=== PATIENT | male | born 1945 | race Caucasian/White ===

== ENCOUNTER 2017-02-17 22:02 | Emergency (ER) | payer MEDICARE ==
[~2017-02-17] VITALS: Ht 162.6 cm; Wt 61.9 kg
[~2017-02-17 22:02] MED LIST: CLOP75TA19 PO; LEFL10TA PO; LEVO25TA PO; PANT40TA25 PO; PRED1TAB17 PO; [UNRECOGNIZED DRUG - CODE] PO
--- OUTSIDE RECORDS SUMMARY | 2017-02-17 22:05 | XMS REPORT | Referral Summary ---
Author Author [facility], [facility] Organization [facility] Address Unknown Phone Unavailable Care Team Providers Care Medical Practice Manager Name Role Phone Brittany Matias Primary Care Physician [phone] Encounter VC Date(s): 04/08/15 - 04/08/15 [facility] [address] [place] [id number] Discharge Diagnosis: Benign essential hypertension Discharge Diagnosis: Rheumatoid arthritis Discharge Diagnosis: Hypothyroidism Discharge Diagnosis: Peripheral vascular disease Discharge Diagnosis: Gastroesophageal reflux disease Discharge Disposition: 01-Home or Self Care Attending Physician: Sammy Matias MD Admitting Physician: Sammy Matias MD Vital Signs Most recent to 1 oldest [Reference Range]: Temperature Tympanic 36.3 degC [36.6-38.1 degC] *LOW* (04/08/15 1:54 PM) Peripheral Pulse 72 bpm Rate [60-100 bpm] (04/08/15 1:54 PM) Respiratory Rate 16 br/min [14-20 br/min] (04/08/15 1:54 PM) Blood Pressure 140/70 mmHg [90-140/60-90 mmHg] (04/08/15 1:54 PM) Problem List Condition Effective Dates Status Health Status Informant Benign essential Active hypertension (disorder)(Confirmed ) Carotid Resolved stenosis(Confirmed) Therapeutic drug Active monitoring(Confirmed ) Gastroesophageal Active reflux disease (disorder)(Confirmed ) GERD(Confirmed) Resolved Hypothyroidism(Confi Resolved rmed) Hypothyroidism Active (disorder)(Confirmed ) Osteoarthritis(Confi Resolved rmed) RA/NDB 10/12/08 Resolved Enrolled(Confirmed) Rheumatoid arthritis Active (disorder)(Confirmed ) Shingles(Confirmed) Resolved Wound to left great 10/03/10 Resolved toe(Confirmed) Allergies, Adverse Reactions, Alerts No Known Medication Allergies Medications Arava 20 mg oral tablet 20 mg 1 tabs, Oral, Daily, # 90 tabs, 1 Refill(s), Pharmacy: [facility], 1 tabs Oral Daily Start Date: 06/17/15 Status: Ordered levothyroxine 75 mcg (0.075 mg) oral tablet 75 mcg 1 tabs, Oral, Daily, # 90 tabs, 3 Refill(s), Pharmacy: [facility] # [id number], 1 tabs Oral Daily Start Date: 04/08/15 Status: Ordered lisinopril 20 mg oral tablet 20 mg 1 tabs, Oral, Daily, # 30 tabs, 5 Refill(s), Pharmacy: [facility] # [id number] Start Date: 07/14/15 Status: Ordered Plavix 75 mg oral tablet See Instructions, TAKE ONE TABLET BY MOUTH EVERY DAY, # 30 tabs, 2 Refill(s), eRx: [facility] #[id number], TAKE ONE TABLET BY MOUTH EVERY DAY Start Date: 07/15/15 Status: Ordered predniSONE 5 mg oral tablet 7.5 mg 1.5 tabs, Oral, Daily, # 135 tabs, 1 Refill(s), Pharmacy: [facility], 1.5 tabs Oral Daily Start Date: 06/17/15 Status: Ordered Protonix 40 mg oral delayed release tablet See Instructions, TAKE ONE TABLET BY MOUTH EVERY DAY, # 90 tabs, eRx: [facility] #[id number], TAKE ONE TABLET BY MOUTH EVERY DAY Start Date: 06/28/15 Status: Ordered sulfaSALAzine 500 mg oral tablet 1,500 mg 3 tabs, Oral, BID, # 540 tabs, 1 Refill(s), Pharmacy: [facility], 3 tabs Oral BID Start Date: 06/17/15 Status: Ordered Results No data available for this section Immunizations Vaccine Date Refusal Reason tetanus/diphth/pertuss (Tdap) adult/adol 06/26/14 influenza virus vaccine, live 06/24/13 pneumococcal 23-polyvalent vaccine 06/18/07 Procedures Procedure Date Related Diagnosis Body Site Rt above knee amputation1 09/29/10 Right Carotid Endarterectomy 07/12/07 Bilateral Bunionectomy 2003 1due to shingles Social History Social History Type Response Smoking Status Former smoker1 1PT STOPPED SMOKING IN 2011 Assessment and Plan Extracted from: Title: Ambulatory Patient Education Author: Sammy Matias MD Date: Family Medicine Rheumatoid Arthritis Rheumatoid arthritis is a long-term (chronic ) inflammatory disease that causes pain, swelling, and stiffness of the joints. It can affect the entire body, including the eyes and lungs. The effects of rheumatoid arthritis vary widely among those with the condition. CAUSES The cause of rheumatoid arthritis is not known. It tends to run in families and is more common in women. Certain cells of the body's natural defense system ( immune system ) do not work properly and begin to attack healthy joints. It primarily involves the connective tissue that lines the joints (synovial membrane ). This can cause damage to the joint. SYMPTOMS Pain, stiffness, swelling, and decreased motion of many joints, especially in the hands and feet. Stiffness that is worse in the morning. It may last 12 hours or longer. Numbness and tingling in the hands. Fatigue. Loss of appetite. Weight loss. Low-grade fever. Dry eyes and mouth. Firm lumps (rheumatoid nodules ) that grow beneath the skin in areas such as the elbows and hands. DIAGNOSIS Diagnosis is based on the symptoms described, an exam, and blood tests. Sometimes, X-rays are helpful. TREATMENT The goals of treatment are to relieve pain, reduce inflammation, and to slow down or stop joint damage and disability. Methods vary and may include: Maintaining a balance of rest, exercise, and proper nutrition. Medicines: Pain relievers (analgesics ). Corticosteroids and nonsteroidal anti-inflammatory drugs (NSAIDs) to reduce inflammation. Disease-modifying antirheumatic drugs (DMARDs) to try to slow the course of the disease. Biologic response modifiers to reduce inflammation and damage. Physical therapy and occupational therapy. Surgery for patients with severe joint damage. Joint replacement or fusing of joints may be needed. Routine monitoring and ongoing care, such as office visits, blood and urine tests, and X-rays. HOME CARE INSTRUCTIONS Remain physically active and reduce activity when the disease gets worse. Eat a well-balanced diet. Put heat on affected joints when you wake up and before activities. Keep the heat on the affected joint for as long as directed by your caregiver. Put ice on affected joints following activities or exercising. Put ice in a plastic bag. Place a towel between your skin and the bag. Leave the ice on for 15-20 minutes, 03-04 times a day. Take all medicines and supplements as directed by your caregiver. Use splints as directed by your caregiver. Splints help maintain joint position and function. Do not sleep with pillows under your knees. This may lead to spasms. Participate in a self-management program to keep current with the latest treatment and coping skills. SEEK IMMEDIATE MEDICAL CARE IF: You have fainting episodes. You have periods of extreme weakness. You rapidly develop a hot, painful joint that is more severe than usual joint aches. You have chills. You have a fever. MAKE SURE YOU: Understand these instructions. Will watch your condition. Will get help right away if you are not doing well or get worse. FOR MORE INFORMATION [employer]: www.rheumatology.org [employer]: www.arthritis.org Document Released: 09/07/2001 Document Revised: 03/11/2013 Document Reviewed: Exit[employer] Patient Information 2014 [employer]. No follow up information was provided. Extracted from: Title: Office Visit Note Author: Sammy Matias MD Date: 04/08/15 Assessment/Plan Benign essential hypertension Blood pressure is adequately controlled. No changes are recommended at this time. Recent laboratory studies reviewed. Follow-up in 3 months. Ordered: Office Visit Level 4 Est 73890 Gastroesophageal reflux disease Chronic stable no change in current treatment recommended. Ordered: Office Visit Level 4 Est 08970 Hypothyroidism Most recent TSH was elevated he is now on 75 g daily. Recheck next month. New prescription called in today. Ordered: Office Visit Level 4 Est 55968 Peripheral vascular disease Chronic stable no change in current treatment. Ordered: Office Visit Level 4 Est 47105 Rheumatoid arthritis Overall chronic and stable. No change in current treatment recommended. Ordered: Office Visit Level 4 Est 33511 Orders: levothyroxine, 75 mcg 1 tabs, Oral, Daily, # 90 tabs, 3 Refill(s), Pharmacy: [facility] #[id number], 1 tabs Oral Daily
--- OUTSIDE RECORDS SUMMARY | 2017-02-17 22:05 | XMS REPORT | Referral Summary ---
Author Author [facility], [facility] Organization [facility] Address Unknown Phone Unavailable Care Team Providers Care Poolroom/Poolhall Manager Name Role Phone Brittany Matias Primary Care Physician [phone] Encounter Date(s): 12/09/15 - 12/09/15 [facility], [facility] [address] [place] [id number] Discharge Diagnosis: Therapeutic drug monitoring Discharge Diagnosis: Rheumatoid arthritis Discharge Disposition: 01-Home or Self Care Attending Physician: Miranda Mariee MD Admitting Physician: Miranda Mariee MD Referring Physician: Sammy Matias MD Vital Signs Most recent to 1 oldest [Reference Range]: Temperature Oral 36.5 degC [35.8-37.3 degC] (12/09/15 2:37 PM) Peripheral Pulse 88 bpm Rate [60-100 bpm] (12/09/15 2:37 PM) Blood Pressure 145/82 mmHg [90-140/60-90 mmHg] *HI* (12/09/15 2:37 PM) Problem List Condition Effective Dates Status [...] # 90 tabs, 1 Refill(s), Pharmacy: [facility], 1 tabs Oral Daily Start Date: 12/09/15 Status: Ordered levothyroxine 75 mcg (0.075 mg) oral tablet 75 mcg 1 tabs, Oral, Daily, # 90 tabs, 3 Refill(s), Pharmacy: [facility] # [id number], 1 tabs Oral Daily Start Date: 04/08/15 Status: Ordered lisinopril 20 mg oral tablet 20 mg 1 tabs, Oral, Daily, # 30 tabs, 5 Refill(s), Pharmacy: [facility] # [id number] Start Date: 07/14/15 Status: Ordered metoprolol succinate 50 mg oral tablet, extended release 50 mg 1 tabs, Oral, Daily, # 30 tabs, 6 Refill(s), Pharmacy: [facility] # [id number] Start Date: 10/13/15 Status: Ordered Plavix 75 mg oral tablet See Instructions, TAKE ONE TABLET BY MOUTH EVERY DAY, # 30 tabs, 1 Refill(s), eRx: [facility] #[id number], TAKE ONE TABLET BY MOUTH EVERY DAY Start Date: 10/21/15 Status: Ordered predniSONE 5 mg oral tablet 7.5 mg 1.5 tabs, Oral, Daily, # 135 tabs, 1 Refill(s), Pharmacy: [facility], 1.5 tabs Oral Daily Start Date: 12/09/15 Status: Ordered Protonix 40 mg oral delayed release tablet See Instructions, TAKE ONE TABLET BY MOUTH EVERY DAY, # 90 tabs, eRx: [facility] #[id number], TAKE ONE TABLET BY MOUTH EVERY DAY Start Date: 09/27/15 Status: Ordered sulfaSALAzine 500 mg oral tablet 1,500 mg 3 tabs, Oral, BID, # 540 tabs, 1 Refill(s), Pharmacy: [facility], 3 tabs Oral BID Start Date: 12/09/15 Status: Ordered Results No data available for this section Immunizations Vaccine Date Refusal Reason tetanus/diphth/pertuss (Tdap) adult/adol 06/26/14 influenza virus vaccine, inactivated 06/24/15 influenza virus vaccine, live 06/24/13 pneumococcal 23-polyvalent vaccine 06/18/07 Procedures Procedure Date Related Diagnosis Body Site Rt above knee amputation1 09/29/10 Right Carotid Endarterectomy 07/12/07 Bilateral Bunionectomy 2003 1due to shingles Social History Social History Type Response Smoking Status Former smoker1 1PT STOPPED SMOKING IN 2011 Assessment and Plan Extracted from: Title: Office Visit Note Author: Miranda Mariee MD Date: 12/09/15 Assessment/Plan 1.Rheumatoid arthritis Ordered: CBC w/ Differential Comprehensive Metabolic Panel Office Visit Level 4 Est 70426 Sedimentation Rate 2.Therapeutic drug monitoring Ordered: CBC w/ Differential Comprehensive Metabolic Panel Office Visit Level 4 Est 70714 Sedimentation Rate Orders: leflunomide, 20 mg 1 tabs, Oral, Daily, # 90 tabs, 1 Refill(s), Pharmacy: [facility], 1 tabs Oral Daily predniSONE, 7.5 mg 1.5 tabs, Oral, Daily, # 135 tabs, 1 Refill(s), Pharmacy: [facility], 1.5 tabs Oral Daily sulfaSALAzine, 1,500 mg 3 tabs, Oral, BID, # 540 tabs, 1 Refill(s), Pharmacy: [facility], 3 tabs Oral BID
--- OUTSIDE RECORDS SUMMARY | 2017-02-17 22:05 | XMS REPORT | Referral Summary ---
Author Author [facility], [facility] Organization [facility] Address Unknown Phone Unavailable Care Team Providers Care Professor Of Music Name Role Phone Brittany Matias Primary Care Physician [phone] Encounter VC Date(s): 07/14/15 - 07/14/15 [facility] [address] [place] [address] Discharge Diagnosis: Hypothyroidism Discharge Diagnosis: Rheumatoid arthritis (disorder) Discharge Diagnosis: Benign essential hypertension Discharge Diagnosis: Gastroesophageal reflux disease Discharge Diagnosis: Peripheral vascular disease Discharge Disposition: 01-Home or Self Care Attending Physician: Sammy Matias MD Admitting Physician: Sammy Matias MD Vital Signs Most recent to 1 oldest [Reference Range]: Temperature Tympanic 36.0 degC [36.6-38.1 degC] *LOW* (07/14/15 2:11 PM) Peripheral Pulse 72 bpm Rate [60-100 bpm] (07/14/15 2:11 PM) Respiratory Rate 16 br/min [14-20 br/min] (07/14/15 2:11 PM) Blood Pressure 144/80 mmHg [90-140/60-90 mmHg] *HI* (07/14/15 2:11 PM) Problem List Condition Effective Dates Status [...] # 90 tabs, 1 Refill(s), Pharmacy: [facility], 1 tabs Oral Daily Start Date: 06/17/15 Status: Ordered levothyroxine 75 mcg (0.075 mg) oral tablet 75 mcg 1 tabs, Oral, Daily, # 90 tabs, 3 Refill(s), Pharmacy: [facility] # [id number], 1 tabs Oral Daily Start Date: 04/08/15 Status: Ordered lisinopril 20 mg oral tablet 20 mg 1 tabs, Oral, Daily, # 30 tabs, 5 Refill(s), Pharmacy: [facility] # [id number] Start Date: 07/14/15 Status: Ordered Plavix 75 mg oral tablet See Instructions, TAKE ONE TABLET BY MOUTH EVERY DAY, # 30 tabs, 2 Refill(s), eRx: [facility] #[id number], TAKE ONE TABLET BY MOUTH EVERY DAY Start Date: 04/07/15 Status: Ordered predniSONE 5 mg oral tablet 7.5 mg 1.5 tabs, Oral, Daily, # 135 tabs, 1 Refill(s), Pharmacy: [facility], 1.5 tabs Oral Daily Start Date: 06/17/15 Status: Ordered Protonix 40 mg oral delayed release tablet See Instructions, TAKE ONE TABLET BY MOUTH EVERY DAY, # 90 tabs, eRx: [facility] #[id number], TAKE ONE TABLET BY MOUTH EVERY DAY Start Date: 06/28/15 Status: Ordered sulfaSALAzine 500 mg oral tablet 1,500 mg 3 tabs, Oral, BID, # 540 tabs, 1 Refill(s), Pharmacy: [facility], 3 tabs Oral BID Start Date: [...] Visit Note Author: Sammy Matias MD Date: 07/14/15 Assessment/Plan Benign essential hypertension Blood pressures well-controlled although high here today. Medications reviewed no changes recommended. Refills on lisinopril provided today. Report card reviewed and provided. Follow-up in 3 months. Ordered: Office Visit Level 4 Est 45347 Gastroesophageal reflux disease Chronic stable no change in current treatment. Ordered: Office Visit Level 4 Est 71162 Hypothyroidism TSH ordered with next lab draw. Continue current dose without change. Ordered: Office Visit Level 4 Est 86099 TSH with Reflex Free T4 Peripheral vascular disease Chronic stable no signs of ischemia in the left foot. Ordered: Office Visit Level 4 Est 97493 Rheumatoid arthritis (disorder) Chronic stable followed by rheumatology. No change in treatment recommended. I did encourage him to have a Prevnar vaccination today. He would like to think about it may be get it next time. Orders: lisinopril, 20 mg 1 tabs, Oral, Daily, # 30 tabs, 5 Refill(s), Pharmacy: [facility] #[id number]
--- OUTSIDE RECORDS SUMMARY | 2017-02-17 22:05 | XMS REPORT | Referral Summary ---
Author Author [facility], [facility] Organization [facility] Address Unknown Phone Unavailable Care Team Providers Care Trailer Tank Truck Driver Name Role Phone Brittany Matias Primary Care Physician [phone] Encounter VC Date(s): 03/09/15 - 03/09/15 [facility], [facility] [address] [place] [id number] Discharge Diagnosis: Rheumatoid arthritis Discharge Diagnosis: Therapeutic drug monitoring Discharge Disposition: 01-Home or Self Care Attending Physician: Miranda Mariee MD Admitting Physician: Miranda Mariee MD Referring Physician: Sammy Matias MD Vital Signs Most recent to 1 oldest [Reference Range]: Temperature Oral 36.3 degC [35.8-37.3 degC] (03/09/15 1:44 PM) Peripheral Pulse 86 bpm Rate [60-100 bpm] (03/09/15 1:44 PM) Blood Pressure 142/76 mmHg [90-140/60-90 mmHg] *HI* (03/09/15 1:44 PM) Problem List Condition Effective Dates Status [...] Daily, # 90 tabs, 3 Refill(s), Pharmacy: [facility] # [id number], 1 tabs Oral Daily Start Date: 04/08/15 Status: Ordered lisinopril 20 mg oral tablet 20 mg 1 tabs, Oral, Daily, # 30 tabs, 5 Refill(s), Pharmacy: [facility] # [id number] Start Date: 07/14/15 Status: Ordered Plavix 75 mg oral tablet See Instructions, TAKE ONE TABLET BY MOUTH EVERY DAY, # 30 tabs, 2 Refill(s), eRx: [facility] #[id number], TAKE ONE TABLET BY MOUTH EVERY DAY Start Date: 07/15/15 Status: Ordered predniSONE 5 mg oral tablet 7.5 mg 1.5 tabs, Oral, Daily, # 135 tabs, 1 Refill(s), Pharmacy: [facility], 1.5 tabs Oral Daily Start Date: 06/17/15 Status: Ordered Protonix 40 mg oral delayed release tablet See Instructions, TAKE ONE TABLET BY MOUTH EVERY DAY, # 90 tabs, eRx: [facility] #[id number], TAKE ONE TABLET BY MOUTH EVERY DAY [...] Visit Note Author: Miranda Mariee MD Date: 03/09/15 Assessment/Plan 1.Rheumatoid arthritis Ordered: CBC w/ Differential Comprehensive Metabolic Panel Office Visit Level 4 Est 00840 Sedimentation Rate 2.Therapeutic drug monitoring Ordered: Office Visit Level 4 Est 73507 Orders: predniSONE, 7.5 mg 1.5 tabs, Oral, Daily, # 135 tabs, 0 Refill(s), Pharmacy: [facility] #[id number], 1.5 tabs Oral Daily
--- OUTSIDE RECORDS SUMMARY | 2017-02-17 22:06 | XMS REPORT | Referral Summary ---
Author Author [facility], [facility] Organization [facility] Address Unknown Phone Unavailable Care Team Providers Care Lead Caregiver Name Role Phone Brittany Matias Primary Care Physician [phone] Encounter VC Date(s): 07/14/15 - 07/14/15 [facility] [address] [place] [address] Discharge Diagnosis: Hypothyroidism Discharge Diagnosis: Rheumatoid arthritis [...] # 90 tabs, 1 Refill(s), Pharmacy: [facility], 1 tabs Oral Daily Start Date: 12/09/15 Status: Ordered levothyroxine 75 mcg (0.075 mg) oral tablet 75 mcg 1 tabs, Oral, Daily, # 90 tabs, 3 Refill(s), Pharmacy: [facility] # [id number], 1 tabs Oral Daily Start Date: 04/08/15 Status: Ordered lisinopril 20 mg oral tablet 20 mg 1 tabs, Oral, Daily, # 90 tabs, 3 Refill(s), Pharmacy: [facility] # [id number] Start Date: 12/23/15 Status: Ordered metoprolol succinate 50 mg oral tablet, extended release 50 mg 1 tabs, Oral, Daily, # 30 tabs, 6 Refill(s), Pharmacy: [facility] # [id number] Start Date: 10/13/15 Status: Ordered Plavix 75 mg oral tablet See Instructions, TAKE ONE TABLET BY MOUTH EVERY DAY, # 90 tabs, 3 Refill(s), Pharmacy: [facility] #[id number], TAKE ONE TABLET BY MOUTH EVERY DAY Start Date: 12/23/15 Status: Ordered predniSONE 5 mg oral tablet 7.5 mg 1.5 tabs, Oral, Daily, # 135 tabs, 1 Refill(s), Pharmacy: [facility], 1.5 tabs Oral Daily Start Date: 12/09/15 Status: Ordered Protonix 40 mg oral delayed release tablet See Instructions, TAKE ONE TABLET BY MOUTH EVERY DAY, # 90 tabs, 2 Refill(s), eRx: [facility] #[id number], TAKE ONE TABLET BY MOUTH EVERY DAY Start Date: 12/24/15 Status: Ordered sulfaSALAzine 500 mg oral tablet 1,500 mg 3 tabs, Oral, BID, # 540 tabs, 1 Refill(s), Pharmacy: [facility], 3 tabs Oral BID Start Date: 12/09/15 Status: Ordered Results No data available for this section Immunizations Vaccine Date Refusal Reason tetanus/diphth/pertuss (Tdap) adult/adol 06/26/14 influenza virus vaccine, inactivated 06/24/15 influenza virus vaccine, live 06/24/13 pneumococcal 23-polyvalent vaccine 06/18/07 Procedures Procedure Date Related Diagnosis Body Site Rt above knee amputation1 09/29/10 Right Carotid Endarterectomy 07/12/07 Bilateral Bunionectomy 2003 1due to christopher Social History Social History Type Response Smoking [...] months. Ordered: Office Visit Level 4 Est 62826 Gastroesophageal reflux disease Chronic stable no change in current treatment. Ordered: Office Visit Level 4 Est 56482 Hypothyroidism TSH ordered with next lab draw. Continue current dose without change. Ordered: Office Visit Level 4 Est 01662 TSH with Reflex Free T4 Peripheral vascular disease Chronic stable no signs of ischemia in the left foot. Ordered: Office Visit Level 4 Est 69376 Rheumatoid arthritis (disorder) Chronic stable followed by rheumatology. No change in treatment recommended. I did encourage him to have a Prevnar vaccination today. He would like to think about it may be get it next time. Orders: lisinopril, 20 mg 1 tabs, Oral, Daily, # 30 tabs, 5 Refill(s), Pharmacy: [facility] #[id number]
--- OUTSIDE RECORDS SUMMARY | 2017-02-17 22:06 | XMS REPORT | Referral Summary ---
Author Author Via SELINA Stafford Newton, [facility] Organization Via ShaylaSELINA Rosas Newton [facility] Address Unknown Phone Unavailable Care Team Providers Care Multimedia Teacher Name Role Phone Brittany Matias Primary Care Physician [phone] Encounter VC Date(s): 06/09/16 - 06/09/16 Via SELINA Stafford Newton [address] [place] [id number] Discharge Diagnosis: Gastroesophageal reflux disease Discharge Diagnosis: Rheumatoid arthritis Discharge Diagnosis: Benign essential hypertension Discharge Diagnosis: Hypothyroidism, unspecified Discharge Diagnosis: Peripheral vascular disease Discharge Disposition: 01-Home or Self Care Attending Physician: Sammy Matias MD Admitting Physician: Sammy Matias MD Vital Signs Most recent to 1 oldest [Reference Range]: Temperature Tympanic 36.1 degC [36.6-38.1 degC] *LOW* (06/09/16 2:42 PM) Peripheral Pulse 76 bpm Rate [60-100 bpm] (06/09/16 2:42 PM) Blood Pressure 146/84 mmHg [90-140/60-90 mmHg] *HI* (06/09/16 2:42 PM) Problem List Condition Effective Dates Status [...] 90 tabs, 1 Refill(s), Pharmacy: Via [facility], 1 tabs Oral Daily Start Date: 12/09/15 Status: Ordered levothyroxine 88 mcg (0.088 mg) oral tablet See Instructions, TAKE ONE TABLET BY MOUTH DAILY, # 60 tabs, eRx: [facility] #[id number], TAKE ONE TABLET BY MOUTH DAILY Start Date: 06/08/16 Status: Ordered lisinopril 20 mg oral tablet 20 mg 1 tabs, Oral, Daily, # 90 tabs, 3 Refill(s), Pharmacy: [facility] # [id number] Start Date: 12/23/15 Status: Ordered Metoprolol Succinate ER 50 mg oral tablet, extended release See Instructions, TAKE ONE TABLET BY MOUTH DAILY, # 30 tabs, 2 Refill(s), eRx: [facility] #[id number], TAKE ONE TABLET BY MOUTH DAILY Start Date: 05/16/16 Status: Ordered Plavix 75 mg oral tablet See Instructions, TAKE ONE TABLET BY MOUTH EVERY DAY, # 90 tabs, 3 Refill(s), Pharmacy: [facility] #[id number], TAKE ONE TABLET BY MOUTH EVERY DAY Start Date: 12/23/15 Status: Ordered predniSONE 5 mg oral tablet 7.5 mg 1.5 tabs, Oral, Daily, # 135 tabs, 1 Refill(s), Pharmacy: Via [facility], 1.5 tabs Oral Daily Start Date: 12/09/15 Status: Ordered Protonix 40 mg oral delayed release tablet See Instructions, TAKE ONE TABLET BY MOUTH EVERY DAY, # 90 tabs, 2 Refill(s), eRx: [facility] #[id number], TAKE ONE TABLET BY MOUTH EVERY DAY Start Date: 12/24/15 Status: Ordered sulfaSALAzine 500 mg oral tablet 1,500 mg 3 tabs, Oral, BID, # 540 tabs, 1 Refill(s), Pharmacy: Via [facility], 3 tabs Oral BID Start Date: 12/09/15 Status: Ordered Results No data available for this section Immunizations Vaccine Date Refusal Reason tetanus/diphth/pertuss (Tdap) adult/adol 06/26/14 influenza virus vaccine, inactivated 06/24/15 influenza virus vaccine, live 06/24/13 pneumococcal 23-polyvalent vaccine 06/18/07 Procedures Procedure Date Related Diagnosis Body Site Rt above knee amputation1 09/29/10 Right Carotid Endarterectomy 07/12/07 Bilateral Bunionectomy 2003 1due to [place] Social History Social History Type Response Smoking Status Former smoker1 1PT STOPPED SMOKING IN 2011 Assessment and Plan Extracted from: Title: Office Visit Note Author: Sammy Matias MD Date: 06/09/16 Assessment/Plan 1.Benign essential hypertension Blood pressuresadequately controlled. Medications and treatments reviewed no changes are recommended. Recheck in 6 months. Report card reviewed and provided. Laboratory studies ordered with his nextscheduled lab through rheumatology. Ordered: Lipid Panel Office Visit Level 4 Est 02366 2.Gastroesophageal reflux disease Chronic stable no change in current treatment. Ordered: Office Visit Level 4 Est 52367 3.Rheumatoid arthritis Chronic relatively stable he will continue to follow-up with Dr. Mariee. Ordered: Office Visit Level 4 Est 47919 4.Hypothyroidism, unspecified He is due for TSH will do that with his next lab draw. If further dosage adjustments need to be made will let them know. Ordered: Office Visit Level 4 Est 47650 TSH with Reflex Free T4 5.Peripheral vascular disease Chronic relatively stable no change in current treatment recommended.
--- OUTSIDE RECORDS SUMMARY | 2017-02-17 22:06 | XMS REPORT | Referral Summary ---
Author Author Via SELINA Stafford Newton, [facility] Organization Via SELINA Stafford Newton [facility] Address Unknown Phone Unavailable Care Team Providers Care Biodiesel Process Control Technician Name Role Phone Brittany Matias Primary Care Physician [phone] Encounter VC Date(s): 02/10/16 - 02/10/16 Via SELINA Stafford Newton, [address] [place] [id number] Discharge Diagnosis: Hypothyroidism, unspecified Discharge Diagnosis: Rheumatoid arthritis Discharge Diagnosis: Gastroesophageal reflux disease Discharge Diagnosis: Benign essential hypertension Discharge Disposition: 01-Home or Self Care Attending Physician: Sammy Matias MD Admitting Physician: Sammy Matias MD Vital Signs Most recent to 1 oldest [Reference Range]: Temperature Tympanic 36.2 degC [36.6-38.1 degC] *LOW* (02/10/16 1:47 PM) Peripheral Pulse 72 bpm Rate [60-100 bpm] (02/10/16 1:47 PM) Respiratory Rate 16 br/min [14-20 br/min] (02/10/16 1:47 PM) Blood Pressure 148/80 mmHg [90-140/60-90 mmHg] *HI* (02/10/16 1:47 PM) Problem List Condition Effective Dates Status [...] # 90 tabs, 1 Refill(s), Pharmacy: Via [facility], 1 tabs Oral Daily Start Date: 12/09/15 Status: Ordered levothyroxine 75 mcg (0.075 mg) oral tablet 75 mcg 1 tabs, Oral, Daily, # 90 tabs, 3 Refill(s), Pharmacy: [facility] # [id number], 1 tabs Oral Daily Start Date: 04/08/15 Status: Ordered lisinopril 20 mg oral tablet 20 mg 1 tabs, Oral, Daily, # 90 tabs, 3 Refill(s), Pharmacy: [facility] # [id number] Start Date: 12/23/15 Status: Ordered metoprolol succinate 50 mg oral tablet, extended release 50 mg 1 tabs, Oral, Daily, # 90 tabs, 6 Refill(s), Pharmacy: [facility] # [id number] Start Date: 10/13/15 Status: Ordered Plavix 75 mg oral tablet See Instructions, TAKE ONE TABLET BY MOUTH EVERY DAY, # 90 tabs, 3 Refill(s), Pharmacy: [facility] #[id number], TAKE ONE TABLET BY MOUTH EVERY DAY Start Date: 12/23/15 Status: Ordered predniSONE 5 mg oral tablet 7.5 mg 1.5 tabs, Oral, Daily, # 135 tabs, 1 Refill(s), Pharmacy: Via [facility], 1.5 tabs Oral Daily Start Date: 12/09/15 Status: Ordered Protonix 40 mg oral delayed release tablet See Instructions, TAKE ONE TABLET BY MOUTH EVERY DAY, # 90 tabs, 2 Refill(s), eRx: [facility] #[id number], TAKE ONE TABLET BY MOUTH EVERY DAY Start Date: 12/24/15 Status: Ordered sulfaSALAzine 500 mg oral tablet 1,500 mg 3 tabs, Oral, BID, # 540 tabs, 1 Refill(s), Pharmacy: Via [facility], 3 tabs Oral BID [...] Visit Note Author: Sammy Matias MD Date: 02/10/16 Assessment/Plan 1.Benign essential hypertension Blood pressure appears to be adequately controlled. Medications and treatments reviewed no changes recommended. Three-month follow-up encouraged. Report card reviewed and provided today. Ordered: Office Visit Level 4 Est 18220 2.Gastroesophageal reflux disease Chronic stablebut with some breakthrough symptoms. Continue by mouth antacids as needed. Continue regular dose ofProtonix. Ordered: Office Visit Level 4 Est 07553 3.Rheumatoid arthritis, Other specified rheumatoid arthritis, multiple sites Continue current treatment plan follow-up with Dr. Mariee as directed Ordered: Office Visit Level 4 Est 03139 4.Hypothyroidism, unspecified He is due for TSHlevel. Orders are placed for his next blood draw. Ordered: Office Visit Level 4 Est 08775 TSH with Reflex Free T4 Orders: metoprolol, 50 mg 1 tabs, Oral, Daily, # 90 tabs, 6 Refill(s), Pharmacy: [facility] #[id number]
--- OUTSIDE RECORDS SUMMARY | 2017-02-17 22:06 | XMS REPORT | Referral Summary ---
Author Author Via SELINA Stafford Murdock, [facility] Organization [facility] SELINA Stafford Murdock, [facility] Address Unknown Phone Unavailable Care Team Providers Care Wind Farm Designer Name Role Phone Brittany Matias Primary Care Physician [phone] Encounter VC Date(s): 03/09/15 - 03/09/15 Via SELINA Stafford Murdock, [facility] [address] [place] [id number] Discharge Diagnosis: Rheumatoid arthritis Discharge Diagnosis: Therapeutic [...] # 90 tabs, 1 Refill(s), Pharmacy: Via [facility], 1 tabs Oral Daily Start Date: 06/17/15 Status: Ordered levothyroxine 75 mcg (0.075 mg) oral tablet 75 mcg 1 tabs, Oral, Daily, # 90 tabs, 3 Refill(s), Pharmacy: [facility] # [id number], 1 tabs Oral Daily Start Date: 04/08/15 Status: Ordered lisinopril 20 mg oral tablet 20 mg 1 tabs, Oral, Daily, # 30 tabs, 5 Refill(s), Pharmacy: [facility] # [id number] Start Date: 07/14/15 Status: Ordered Plavix 75 mg oral tablet See Instructions, TAKE ONE TABLET BY MOUTH EVERY DAY, # 30 tabs, 2 Refill(s), eRx: [facility] #[id number], TAKE ONE TABLET BY MOUTH EVERY DAY Start Date: 07/15/15 Status: Ordered predniSONE 5 mg oral tablet 7.5 mg 1.5 tabs, Oral, Daily, # 135 tabs, 1 Refill(s), Pharmacy: Via [facility], 1.5 tabs Oral Daily Start Date: 06/17/15 Status: Ordered Protonix 40 mg oral delayed release tablet See Instructions, TAKE ONE TABLET BY MOUTH EVERY DAY, # 90 tabs, eRx: [facility] #[id number], TAKE ONE TABLET BY MOUTH EVERY DAY Start Date: 06/28/15 Status: Ordered sulfaSALAzine 500 mg oral tablet 1,500 mg 3 tabs, Oral, BID, # 540 tabs, 1 Refill(s), Pharmacy: Via [facility], 3 tabs Oral BID [...] Metabolic Panel Office Visit Level 4 Est 70622 Sedimentation Rate 2.Therapeutic drug monitoring Ordered: Office Visit Level 4 Est 82802 Orders: predniSONE, 7.5 mg 1.5 tabs, Oral, Daily, # 135 tabs, 0 Refill(s), Pharmacy: [facility] #[id number], 1.5 tabs Oral Daily
--- OUTSIDE RECORDS SUMMARY | 2017-02-17 22:06 | XMS REPORT | Referral Summary ---
Author Author Via SELINA Stafford Newton, [facility] Organization Via ShaylaSELINA Rosas Newton [facility] Address Unknown Phone Unavailable Care Team Providers Care Trauma Doctor Name Role Phone Brittany Matias Primary Care Physician [phone] Encounter VC Date(s): 11/10/15 - 11/10/15 Via SELINA Stafford Newton, [address] [place] [address] Discharge Diagnosis: Hypothyroidism Discharge Diagnosis: Benign essential hypertension Discharge Diagnosis: Gastroesophageal reflux disease Discharge Disposition: 01-Home or Self Care Attending Physician: Sammy Matias MD Admitting Physician: Sammy Matias MD Vital Signs Most recent to 1 oldest [Reference Range]: Temperature Tympanic 36.0 degC [36.6-38.1 degC] *LOW* (11/10/15 2:29 PM) Peripheral Pulse 72 bpm Rate [60-100 bpm] (11/10/15 2:29 PM) Respiratory Rate 18 br/min [14-20 br/min] (11/10/15 2:29 PM) Blood Pressure 160/70 mmHg [90-140/60-90 mmHg] *HI* (11/10/15 2:29 PM) Problem List Condition Effective Dates Status [...] # 90 tabs, 1 Refill(s), Pharmacy: Via [facility], 1 tabs Oral Daily Start Date: 06/17/15 Status: Ordered levothyroxine 75 mcg (0.075 mg) oral tablet 75 mcg 1 tabs, Oral, Daily, # 90 tabs, 3 Refill(s), Pharmacy: [facility] # [id number], 1 tabs Oral Daily Start Date: 04/08/15 Status: Ordered lisinopril 20 mg oral tablet 20 mg 1 tabs, Oral, Daily, # 30 tabs, 5 Refill(s), Pharmacy: [facility] # [id number] Start Date: 07/14/15 Status: Ordered metoprolol succinate 50 mg oral tablet, extended release 50 mg 1 tabs, Oral, Daily, # 30 tabs, 6 Refill(s), Pharmacy: [facility] # [id number] Start Date: 10/13/15 Status: Ordered Plavix 75 mg oral tablet See Instructions, TAKE ONE TABLET BY MOUTH EVERY DAY, # 30 tabs, 1 Refill(s), eRx: [facility] #[id number], TAKE ONE TABLET BY MOUTH EVERY DAY Start Date: 10/21/15 Status: Ordered predniSONE 5 mg oral tablet 7.5 mg 1.5 tabs, Oral, Daily, # 135 tabs, 1 Refill(s), Pharmacy: Via [facility], 1.5 tabs Oral Daily Start Date: 06/17/15 Status: Ordered Protonix 40 mg oral delayed release tablet See Instructions, TAKE ONE TABLET BY MOUTH EVERY DAY, # 90 tabs, eRx: [facility] #[id number], TAKE ONE TABLET BY MOUTH EVERY DAY Start Date: 09/27/15 Status: Ordered sulfaSALAzine 500 mg oral tablet 1,500 mg 3 tabs, Oral, BID, # 540 tabs, 1 Refill(s), Pharmacy: Via [facility], 3 tabs Oral BID Start Date: 06/17/15 Status: Ordered Results No data available for this section Immunizations Vaccine Date Refusal Reason tetanus/diphth/pertuss (Tdap) adult/adol 06/26/14 influenza virus vaccine, inactivated 06/24/15 influenza virus vaccine, live 06/24/13 pneumococcal 23-polyvalent vaccine 06/18/07 Procedures Procedure Date Related Diagnosis Body Site Rt above knee amputation1 1/6/11 Right Carotid Endarterectomy 07/12/07 Bilateral Bunionectomy 2003 1due to christopher Social History Social History Type Response Smoking Status Former smoker1 1PT STOPPED SMOKING IN 2011 Assessment and Plan Extracted from: Title: Office Visit Note Author: Sammy Matias MD Date: 11/10/15 Assessment/Plan Benign essential hypertension, Essential (primary) hypertension Blood pressure shows improvement but is still running a little high. Continue current medications and recheck in 3 months. Laboratory studies ordered for that time. Further problems or concerns before then he'll let us know. Ordered: Office Visit Level 3 Est 93820 Gastro-esophageal reflux disease without esophagitis, Gastroesophageal reflux disease Chronic stable no change in current treatment. Ordered: Office Visit Level 3 Est 17460 Hypothyroidism, Hypothyroidism, unspecified Chronic and stable no change in current treatment Ordered: Office Visit Level 3 Est 97367
--- OUTSIDE RECORDS SUMMARY | 2017-02-17 22:06 | XMS REPORT | Referral Summary ---
Author Author Via SELINA Stafford Murdock, [facility] Organization Via SELINA Stafford Murdock, [facility] Address Unknown Phone Unavailable Care Team Providers Care Metal Reed Tuner Name Role Phone Brittany Matias Primary Care Physician [phone] Encounter VC Date(s): 09/09/15 - 09/09/15 Via SELINA Stafford Murdock, [facility] [address] [place] [id number] Discharge Diagnosis: Therapeutic drug monitoring Discharge Diagnosis: Rheumatoid arthritis Discharge Disposition: 01-Home or Self Care Attending Physician: Miranda Mariee MD Admitting Physician: Miranda Mariee MD Referring Physician: Sammy Matias MD Vital Signs Most recent to 1 oldest [Reference Range]: Temperature Oral 36.3 degC [35.8-37.3 degC] (09/09/15 2:09 PM) Peripheral Pulse 83 bpm Rate [60-100 bpm] (09/09/15 2:09 PM) Blood Pressure 158/83 mmHg [90-140/60-90 mmHg] *HI* (09/09/15 2:09 PM) Problem List Condition Effective Dates Status [...] # 90 tabs, 1 Refill(s), Pharmacy: Via [facility], 1 tabs Oral Daily Start Date: 06/17/15 Status: Ordered levothyroxine 75 mcg (0.075 mg) oral tablet 75 mcg 1 tabs, Oral, Daily, # 90 tabs, 3 Refill(s), Pharmacy: [facility] # [id number], 1 tabs Oral Daily Start Date: 04/08/15 Status: Ordered lisinopril 20 mg oral tablet 20 mg 1 tabs, Oral, Daily, # 30 tabs, 5 Refill(s), Pharmacy: [facility] # [id number] Start Date: 07/14/15 Status: Ordered Plavix 75 mg oral tablet See Instructions, TAKE ONE TABLET BY MOUTH EVERY DAY, # 30 tabs, 2 Refill(s), eRx: [facility] #[id number], TAKE ONE TABLET BY MOUTH EVERY DAY Start Date: 07/15/15 Status: Ordered predniSONE 5 mg oral tablet 7.5 mg 1.5 tabs, Oral, Daily, # 135 tabs, 1 Refill(s), Pharmacy: Via [facility], 1.5 tabs Oral Daily Start Date: 06/17/15 Status: Ordered Protonix 40 mg oral delayed release tablet See Instructions, TAKE ONE TABLET BY MOUTH EVERY DAY, # 90 tabs, eRx: [facility] #[id number], TAKE ONE TABLET BY MOUTH EVERY DAY Start Date: 06/28/15 Status: Ordered sulfaSALAzine 500 mg oral tablet 1,500 mg 3 tabs, Oral, BID, # 540 tabs, 1 Refill(s), Pharmacy: Via [facility], 3 tabs Oral BID [...] Visit Note Author: Miranda Mariee MD Date: 09/09/15 Assessment/Plan 1.Rheumatoid arthritis Ordered: CBC w/ Differential Comprehensive Metabolic Panel Office Visit Level 4 Est 88928 Sedimentation Rate 2.Therapeutic drug monitoring Ordered: CBC w/ Differential Comprehensive Metabolic Panel Office Visit Level 4 Est 76033 Sedimentation Rate
--- OUTSIDE RECORDS SUMMARY | 2017-02-17 22:06 | XMS REPORT | Referral Summary ---
Author Author Via SELINA Stafford Newton, [facility] Organization Via ShaylaSELINA Rosas Newton [facility] Address Unknown Phone Unavailable Care Team Providers Care Senior Process Engineer Name Role Phone Brittany Matias Primary Care Physician [phone] Encounter VC Date(s): 10/13/15 - 10/13/15 Via SELINA Stafford Newton, [address] [place] [address] Discharge Diagnosis: Rheumatoid arthritis Discharge Diagnosis: Gastroesophageal reflux disease Discharge Diagnosis: Hypothyroidism Discharge Diagnosis: Benign essential hypertension Discharge Disposition: 01-Home or Self Care Attending Physician: Sammy Matias MD Vital Signs Most recent to 1 oldest [Reference Range]: Temperature Tympanic 36.3 degC [36.6-38.1 degC] *LOW* (10/13/15 2:41 PM) Peripheral Pulse 84 bpm Rate [60-100 bpm] (10/13/15 2:41 PM) Respiratory Rate 16 br/min [14-20 br/min] (10/13/15 2:41 PM) Blood Pressure 182/86 mmHg [90-140/60-90 mmHg] *HI* (10/13/15 2:41 PM) Problem List Condition Effective Dates Status [...] # 90 tabs, 1 Refill(s), Pharmacy: Via [facility], 1 tabs Oral Daily Start Date: 06/17/15 Status: Ordered levothyroxine 75 mcg (0.075 mg) oral tablet 75 mcg 1 tabs, Oral, Daily, # 90 tabs, 3 Refill(s), Pharmacy: [facility] # [id number], 1 tabs Oral Daily Start Date: 04/08/15 Status: Ordered lisinopril 20 mg oral tablet 20 mg 1 tabs, Oral, Daily, # 30 tabs, 5 Refill(s), Pharmacy: [facility] # [id number] Start Date: 07/14/15 Status: Ordered metoprolol succinate 50 mg oral tablet, extended release 50 mg 1 tabs, Oral, Daily, # 30 tabs, 6 Refill(s), Pharmacy: [facility] # [id number] Start Date: 10/13/15 Status: Ordered Plavix 75 mg oral tablet See Instructions, TAKE ONE TABLET BY MOUTH EVERY DAY, # 30 tabs, 2 Refill(s), eRx: [facility] #[id number], TAKE ONE TABLET BY MOUTH EVERY DAY Start Date: 07/15/15 Status: Ordered predniSONE 5 mg oral tablet 7.5 mg 1.5 tabs, Oral, Daily, # 135 tabs, 1 Refill(s), Pharmacy: Via [facility], 1.5 tabs Oral Daily Start Date: 06/17/15 Status: Ordered Protonix 40 mg oral delayed release tablet See Instructions, TAKE ONE TABLET BY MOUTH EVERY DAY, # 90 tabs, eRx: [facility] #[id number], TAKE ONE TABLET BY MOUTH EVERY DAY Start Date: 09/27/15 Status: Ordered sulfaSALAzine 500 mg oral tablet 1,500 mg 3 tabs, Oral, BID, # 540 tabs, 1 Refill(s), Pharmacy: Via [facility], 3 tabs Oral BID Start Date: [...] Visit Note Author: Sammy Matias MD Date: 10/13/15 Assessment/Plan Benign essential hypertension His blood pressures been runningon the high side and is high here today. I've recommended adding metoprololextended release 50 mg once daily. Recheck in 1 month. Ordered: Office Visit Level 4 Est 53045 Gastroesophageal reflux disease Chronic stable no change in current treatment. Ordered: Office Visit Level 4 Est 79374 Hypothyroidism Chronic stable no change in current treatment. Ordered: Office Visit Level 4 Est 59411 Rheumatoid arthritis He continues to be followed in rheumatologyI encouraged that to continue. Ordered: Office Visit Level 4 Est 57753 Orders: metoprolol, 50 mg 1 tabs, Oral, Daily, # 30 tabs, 6 Refill(s), Pharmacy: [facility] #[id number]
--- OUTSIDE RECORDS SUMMARY | 2017-02-17 22:06 | XMS REPORT | Continuity of Care Document ---
Author Author Via [facility] Organization Via [facility] Address Unknown Phone Unavailable Allergies Active Description Code Type Severity Reaction Onset Reported/Identified Relationship to Patient Clinical Status Yes No Known Medication Allergies NKMA N/A N/A 03/17/2014 Medications Problems Procedures Results Test Result Range CBC With Platelet and Differential - 09/15/16 11:25 Absolute Basophils 0.01 10*3/uL 0.00- 0.30 Absolute Eosinophils 0.26 10*3/uL 0.00- 0.60 Absolute Lymphocytes 0.60 10*3/uL 1.00- 4.00 Absolute Monocytes 0.25 10*3/uL 0.20- 0.80 Absolute Neutrophils 3.92 10*3/uL 2.50- 7.00 Basophils 0 % 0-2 Eosinophils 5 % 0-6 HCT 33.0 % 40.0-54.0 HGB 10.6 g/dL 12.0-16.0 Lymphocytes 12 % 20-40 MCH 29.0 pg 26.0-34.0 MCHC 32.1 g/dL 32.0-36.0 MCV 90.2 fL 80.0-96.0 Monocytes 5 % 4-8 MPV 10.3 fL 8.8-14.8 Neutrophils 78 % 50-70 Platelet Count 247 K/uL 150-400 RBC 3.66 10*6/uL 3.70-5.20 RDW 16.6 % 0.0-14.5 WBC 5.0 K/uL 5.0-10.0 Encounters ACCT No. Visit Date/Time Discharge Status Pt. Type Provider Facility Loc./Unit Complaint [id number] 12/10/2013 07:26:00 12/10/2013 23 :59:59 CLS Outpatient
--- OUTSIDE RECORDS SUMMARY | 2017-02-17 22:06 | XMS REPORT | Referral Summary ---
Author Organization Unknown Address Unknown Phone Unavailable Care Team Providers Care Refinery Operator Crude Unit Name Role Phone Brittany Matias Primary Care Physician [phone] Encounter VC Date(s): 01/06/15 - 01/06/15 [facility], [place], Family [address] [place] [address] Discharge Diagnosis: Gastroesophageal reflux disease Discharge Diagnosis: Rheumatoid arthritis Discharge Diagnosis: Hypothyroidism Discharge Diagnosis: Benign essential hypertension Discharge Disposition: Home or Self Care Attending Physician: Sammy Matias MD Admitting Physician: Sammy Matias MD Vital Signs Most recent to 1 oldest [Reference Range]: Temperature Tympanic 36.1 degC [36.6-38.1 degC] *LOW* (01/06/15 1:37 PM) Blood Pressure 148/84 mmHg [90-140/60-90 mmHg] *HI* (01/06/15 1:37 PM) Problem List Condition Effective Dates Status [...] Allergies Medications Arava 20 mg oral tablet 1 tabs, Oral, Daily, # 90 tabs, 1 Refill(s), Pharmacy: [facility] #[id number] , 1 tabs Oral Daily Start Date: 12/08/14 Status: Ordered Levaquin 500 mg oral tablet 1 tabs, Oral, q24hr, X 10 days, # 10 tabs, 0 Refill(s), Pharmacy: [facility] #[id number], 1 tabs Oral q24hr,x10 days Start Date: 12/30/14 Stop Date: 01/09/15 Status: Ordered Levothroid 50 mcg (0.05 mg) oral tablet 1 tabs, Oral, Daily, # 30 tabs, 0 Refill(s) Start Date: 03/09/14 Status: Ordered lisinopril 20 mg oral tablet See Instructions, TAKE ONE TABLET BY MOUTH EVERY DAY, # 30 tabs, 5 Refill(s), eRx: [facility] #[id number], TAKE ONE TABLET BY MOUTH EVERY DAY Special Instructions: TAKE ONE TABLET BY MOUTH EVERY DAY Start Date: 07/29/14 Status: Ordered Plavix 75 mg oral tablet 1 tabs, Oral, Daily, # 30 tabs, 0 Refill(s) Start Date: 03/09/14 Status: Ordered predniSONE 5 mg oral tablet 1.5 tabs, Oral, Daily, # 135 tabs, 1 Refill(s), Pharmacy: [facility] # [id number], 1.5 tabs Oral Daily Start Date: 09/08/14 Status: Ordered promethazine 25 mg oral tablet 1 tabs, Oral, q6hr, use instead of Zofran, # 20 tabs, 0 Refill(s), Pharmacy: [facility] #[id number], 1 tabs Oral q6hr,Instr:use instead of Zofran Special Instructions: use instead of Zofran Start Date: 12/30/14 Stop Date: 01/29/15 Status: Ordered Protonix 40 mg oral delayed release tablet See Instructions, TAKE ONE TABLET BY MOUTH EVERY DAY, # 90 tabs, 1 Refill(s), eRx: [facility] #[id number], TAKE ONE TABLET BY MOUTH EVERY DAY Special Instructions: TAKE ONE TABLET BY MOUTH EVERY DAY Start Date: 12/30/14 Status: Ordered sulfaSALAzine 500 mg oral tablet 3 tabs, Oral, BID, # 540 tabs, 1 Refill(s), Pharmacy: [facility] #[id number], 3 tabs Oral BID Start Date: 12/08/14 Status: Ordered Results No data available for this section Immunizations Vaccine Date Refusal Reason tetanus/diphth/pertuss (Tdap) adult/adol 06/26/14 influenza virus vaccine, live 06/24/13 pneumococcal 23-polyvalent vaccine 06/18/07 Procedures Procedure Date Related Diagnosis Body Site Rt above knee amputation1 09/29/10 Right Carotid Endarterectomy 07/12/07 Bilateral Bunionectomy 2003 1due to [place] Social History Social History Type Response Smoking Status Former smoker1 1PT STOPPED SMOKING IN 2011 Assessment and Plan Extracted from: Title: Ambulatory Patient Education Author: Sammy Matias MD Date: Family Medicine Hypothyroidism The thyroid is a large gland located in the lower front of your neck. The thyroid gland helps control metabolism. Metabolism is how your body handles food. It controls metabolism with the hormone thyroxine. When this gland is underactive (hypothyroid), it produces too little hormone. CAUSES These include: Absence or destruction of thyroid tissue. Goiter due to iodine deficiency. Goiter due to medications. Congenital defects (since ). Problems with the pituitary. This causes a lack of TSH (thyroid stimulating hormone). This hormone tells the thyroid to outside plant cable engineer more hormone. SYMPTOMS Lethargy (feeling as though you have no energy) Cold intolerance Weight gain (in spite of normal food intake) Dry skin Coarse hair Menstrual irregularity (if severe, may lead to infertility) Slowing of thought processes Cardiac problems are also caused by insufficient amounts of thyroid hormone. Hypothyroidism in the is cretinism, and is an extreme form. It is important that this form be treated adequately and immediately or it will lead rapidly to retarded physical and mental development. DIAGNOSIS To prove hypothyroidism, your caregiver may do blood tests and ultrasound tests. Sometimes the signs are hidden. It may be necessary for your caregiver to watch this illness with blood tests either before or after diagnosis and treatment. TREATMENT Low levels of thyroid hormone are increased by using synthetic thyroid hormone. This is a safe, effective treatment. It usually takes about four weeks to gain the full effects of the medication. After you have the full effect of the medication, it will generally take another four weeks for problems to leave. Your caregiver may start you on low doses. If you have had heart problems the dose may be gradually increased. It is generally not an emergency to get rapidly to normal. HOME CARE INSTRUCTIONS Take your medications as your caregiver suggests. Let your caregiver know of any medications you are taking or start taking. Your caregiver will help you with dosage schedules. As your condition improves, your dosage needs may increase. It will be necessary to have continuing blood tests as suggested by your caregiver. Report all suspected medication side effects to your caregiver. SEEK MEDICAL CARE IF: Seek medical care if you develop: Sweating. Tremulousness (tremors). Anxiety. Rapid weight loss. Heat intolerance. Emotional swings. Diarrhea. Weakness. SEEK IMMEDIATE MEDICAL CARE IF: You develop chest pain, an irregular heart beat (palpitations ), or a rapid heart beat. MAKE SURE YOU: Understand these instructions. Will watch your condition. Will get help right away if you are not doing well or get worse. Document Released: 09/10/2006 Document Revised: 12/02/2012 Document Reviewed: [facility] Patient Information 2014 [email or web address]. No follow up information was provided. Extracted from: Title: Office Visit Note Author: Sammy Matias MD Date: 01/06/15 Assessment/Plan Benign essential hypertension Blood pressure is running a little high here today it has been running normal. We'll continue to follow and monitor. Recheck in 3 months. Laboratory studies from mid November were reviewed. Ordered: Office Visit Level 4 Est 38689 Gastroesophageal reflux disease Stable no change in current treatment. Ordered: Office Visit Level 4 Est 97637 Hypothyroidism Last TSH was mildly elevated. Needs to be rechecked next lab draw. Ordered: Office Visit Level 4 Est 86018 Rheumatoid arthritis Stable continue follow-up with screed operator. Ordered: Office Visit Level 4 Est 02330
--- OUTSIDE RECORDS SUMMARY | 2017-02-17 22:07 | XMS REPORT | Continuity of Care Document ---
Author Author Miranda Mariee MD Ambulatory Address [place] [address] Phone Care Team Providers Care Medical Services Manager Name Role Phone Sammy Matias PP Unavailable Payers Payer name Insurance type Covered alliance party ID Authorization(s) Unknown Problems Condition Effective Dates (start - stop) Clinical Status Rheumatoid Arthritis - Remission Therapeutic Drug Monitoring - *Chronic Rheumatoid Arthritis - Well Controlled Therapeutic Drug Monitoring - *Chronic Hypertension, Benign - *Chronic Hypothyroidism - *Chronic Rheumatoid Arthritis - *Chronic GERD - *Chronic Rheumatoid Arthritis - Well Controlled Therapeutic Drug Monitoring - *Chronic Rheumatoid Arthritis - Well Controlled Therapeutic Drug Monitoring - *Chronic HYPOTHYROIDISM NOS - ESOPHAGEAL REFLUX - RHEUMATOID ARTHRITIS - Hypertension, Benign - *Chronic Hypothyroidism - *Chronic GERD - *Chronic Rheumatoid Arthritis - *Chronic Rheumatoid Arthritis - *Chronic Therapeutic Drug Monitoring - *Chronic Rheumatoid Arthritis - Well Controlled Therapeutic Drug Monitoring - *Chronic Rheumatoid Arthritis - *Chronic Therapeutic Drug Monitoring - *Acute Family History Family Member Diagnosis Age At Onset Status Unknown Social History Social History Element Description Quantity Unknown Allergies, Adverse Reactions, Alerts Substance Reaction Severity Status Unknown Medications Medication Instructions Dosage Effective Dates (start - stop) Status Arava 20 mg tablet take 1 Tablet by Oral route every day 0 - Active sulfasalazine 500 mg tablet Take 3 tablets by mouth twice a day. 2013 - Active prednisone 5 mg tablet TAKE 1 AND 1/2 TAB DAILY - Active lisinopril 20 mg tablet Take 1 by mouth every day. - Active Plavix 75 mg tablet take 1 tablet (75MG) by oral route every day 75 MG Dec - Active Levothroid 50 mcg tablet Take 1 tablet by mouth every day. - Active Protonix 40 mg tablet,delayed release Take 1 tablet by mouth every day. - Active Immunizations Vaccine Date Status Comments flu (split) (3 yrs or older) completed - Completed reason: previously given Results Test Name Date and Time Measure Units Reference Range Abnormal Flag Comments Unknown Vital Signs Date / Time: Height Weight Pulse Rate Blood Pressure Temperature /12:03:00 62.00 in 151.20 lbs 74 /min 138/75 mm[Hg] 97.9 F Procedures Procedure Date Unknown Encounters Encounter Location Date Patient Visit Replaced by [facility] Patient Visit Replaced by [facility] Patient Visit [facility] Patient Visit Replaced by [facility] Patient Visit Replaced by [facility] Patient Visit Conversion Patient Visit [facility] Patient Visit Replaced by [facility] Patient Visit Replaced by [facility] Patient Visit Replaced by [facility] Advance Directives Directive Effective Date Unknown
--- OUTSIDE RECORDS SUMMARY | 2017-02-17 22:07 | XMS REPORT | Referral Summary ---
Author Author [facility] Organization [facility] Address Unknown Phone Unavailable Care Team Providers Care Geriatric Physician Name Role Phone Brittany Matias Primary Care Physician [phone] Encounter VC Date(s): 10/11/16 - 10/11/16 [facility] [address] [place] [id number] Discharge Diagnosis: Therapeutic drug monitoring Discharge Diagnosis: Rheumatoid arthritis Discharge Disposition: 01-Home or Self Care Attending Physician: Miranda Mariee MD Admitting Physician: Miranda Mariee MD Referring Physician: Sammy Matias MD Vital Signs Most recent to 1 oldest [Reference Range]: Temperature Oral 36.6 degC [35.8-37.3 degC] (10/11/16 2:31 PM) Peripheral Pulse 81 bpm Rate [60-100 bpm] (10/11/16 2:31 PM) Blood Pressure 155/66 mmHg [90-140/60-90 mmHg] *HI* (10/11/16 2:31 PM) Problem List Condition Effective Dates Status [...] # 90 tabs, 1 Refill(s), Pharmacy: [facility], 1 tabs Oral Daily Start Date: 10/11/16 Status: Ordered levothyroxine 88 mcg (0.088 mg) oral tablet See Instructions, TAKE ONE TABLET BY MOUTH DAILY, # 60 tabs, eRx: [facility] #[id number] Start Date: 09/29/16 Status: Ordered lisinopril 20 mg oral tablet 20 mg 1 tabs, Oral, Daily, # 90 tabs, 3 Refill(s), Pharmacy: [facility] # [id number] Start Date: 12/23/15 Status: Ordered Metoprolol Succinate ER 50 mg oral tablet, extended release See Instructions, TAKE ONE TABLET BY MOUTH DAILY, # 30 tabs, 2 Refill(s), eRx: [facility] #[id number], TAKE ONE TABLET BY MOUTH DAILY Start Date: 05/16/16 Status: Ordered pantoprazole 40 mg oral delayed release tablet See Instructions, TAKE ONE TABLET BY MOUTH EVERY DAY, # 90 tabs, eRx: [facility] #[id number] Start Date: 09/13/16 Status: Ordered Plavix 75 mg oral tablet See Instructions, TAKE ONE TABLET BY MOUTH EVERY DAY, # 90 tabs, 3 Refill(s), Pharmacy: [facility] #[id number], TAKE ONE TABLET BY MOUTH EVERY DAY Start Date: 12/23/15 Status: Ordered predniSONE 5 mg oral tablet 7.5 mg 1.5 tabs, Oral, Daily, # 135 tabs, 1 Refill(s), Pharmacy: [facility], 1.5 tabs Oral Daily Start Date: 10/11/16 Status: Ordered Sulfazine 500 mg oral tablet See Instructions, TAKE 3 TABLETS BY MOUTH TWICE A DAY, # 540 unknown unit, 1 Refill(s), Pharmacy: [facility], TAKE 3 TABLETS BY MOUTH TWICE A DAY Start Date: 10/11/16 Status: Ordered Results No data available for this section Immunizations Given and Recorded Vaccine Date Status Refusal Reason tetanus/diphth/pertuss (Tdap) adult/adol 06/26/14 Recorded influenza virus vaccine, inactivated 06/24/15 Recorded influenza virus vaccine, live 06/24/13 Given pneumococcal 23-polyvalent vaccine 06/18/07 Recorded Procedures Procedure Date Related Diagnosis Body Site Rt above knee amputation1 09/29/10 Right Carotid Endarterectomy 07/12/07 Bilateral Bunionectomy 2003 1due to shing[place] Social History Social History Type Response Smoking Status Former smoker1 1PT STOPPED SMOKING IN 2011 Assessment and Plan Extracted from: Title: Office Visit Note Author: Miranda Mariee MD Date: 10/11/16 Assessment/Plan 1.Rheumatoid arthritis Ordered: CBC w/ Differential Comprehensive Metabolic Panel Office Visit Level 4 Est 87615 Return to Clinic Sedimentation Rate 2.Therapeutic drug monitoring Ordered: CBC w/ Differential Comprehensive Metabolic Panel Office Visit Level 4 Est 69298 Return to Clinic Sedimentation Rate Referrals to Other Providers Referred by: Miranda Mariee MD
--- OUTSIDE RECORDS SUMMARY | 2017-02-17 22:07 | XMS REPORT | Referral Summary ---
Author Author [facility] [place], [facility] Organization [facility] [place] [facility] Address Unknown Phone Unavailable Care Team Providers Care Tree Scout Name Role Phone Brittany Matias Primary Care Physician [phone] Encounter VC Date(s): 04/08/15 - 04/08/15 [facility] [place] [address] [place] [id number] Discharge Diagnosis: Benign essential hypertension Discharge Diagnosis: [...] # 90 tabs, 1 Refill(s), Pharmacy: Via [facility], 1 tabs Oral Daily Start Date: 06/17/15 Status: Ordered levothyroxine 75 mcg (0.075 mg) oral tablet 75 mcg 1 tabs, Oral, Daily, # 90 tabs, 3 Refill(s), Pharmacy: [facility] # [id number], 1 tabs Oral Daily Start Date: 04/08/15 Status: Ordered lisinopril 20 mg oral tablet 20 mg 1 tabs, Oral, Daily, # 30 tabs, 5 Refill(s), Pharmacy: [facility] # [id number] Start Date: 07/14/15 Status: Ordered metoprolol succinate 50 mg oral tablet, extended release 50 mg 1 tabs, Oral, Daily, # 30 tabs, 6 Refill(s), Pharmacy: [facility] # [id number] Start Date: 10/13/15 Status: Ordered Plavix 75 mg oral tablet See Instructions, TAKE ONE TABLET BY MOUTH EVERY DAY, # 30 tabs, 2 Refill(s), eRx: [facility] #[id number], TAKE ONE TABLET BY MOUTH EVERY DAY Start Date: 07/15/15 Status: Ordered predniSONE 5 mg oral tablet 7.5 mg 1.5 tabs, Oral, Daily, # 135 tabs, 1 Refill(s), Pharmacy: [facility], 1.5 tabs Oral Daily Start Date: 06/17/15 Status: Ordered Protonix 40 mg oral delayed release tablet See Instructions, TAKE ONE TABLET BY MOUTH EVERY DAY, # 90 tabs, eRx: [facility] #[id number], TAKE ONE TABLET BY MOUTH EVERY DAY Start Date: 09/27/15 Status: Ordered sulfaSALAzine 500 mg oral tablet 1,500 mg 3 tabs, Oral, BID, # 540 tabs, 1 Refill(s), Pharmacy: [facility], 3 tabs Oral BID Start Date: 06/17/15 Status: Ordered Results No data available for this section Immunizations Vaccine Date Refusal Reason tetanus/diphth/pertuss (Tdap) adult/adol 06/26/14 influenza virus vaccine, live 06/24/13 pneumococcal 23-polyvalent vaccine 06/18/07 Procedures Procedure Date Related Diagnosis Body Site Rt above knee amputation1 09/29/10 Right Carotid Endarterectomy 07/12/07 Bilateral Bunionectomy 2003 1due to [place] Social History Social History Type Response Smoking Status Former smoker1 1PT STOPPED SMOKING IN 2011 Assessment and Plan Extracted from: Title: Ambulatory Patient Education Author: Sammy Matias MD Date: Family [facility] Rheumatoid Arthritis Rheumatoid arthritis is a long-term [...] well or get worse. FOR MORE INFORMATION [employer]: www.rheumatology.org Ar[employer]: www.arthritis.org Document Released: 09/07/2001 Document Revised: 03/11/2013 Document Reviewed: [employer] Patient Information 2014 [employer]. No follow up information was provided. Extracted from: Title: Office Visit Note Author: Sammy Matias MD Date: 04/08/15 Assessment/Plan Benign essential hypertension Blood pressure is adequately controlled. No changes are recommended at this time. Recent laboratory studies reviewed. Follow-up in 3 months. Ordered: Office Visit Level 4 Est 67563 Gastroesophageal reflux disease Chronic stable no change in current treatment recommended. Ordered: Office Visit Level 4 Est 94980 Hypothyroidism Most recent TSH was elevated he is now on 75 g daily. Recheck next month. New prescription called in today. Ordered: Office Visit Level 4 Est 90919 Peripheral vascular disease Chronic stable no change in current treatment. Ordered: Office Visit Level 4 Est 34394 Rheumatoid arthritis Overall chronic and stable. No change in current treatment recommended. Ordered: Office Visit Level 4 Est 74793 Orders: levothyroxine, 75 mcg 1 tabs, Oral, Daily, # 90 tabs, 3 Refill(s), Pharmacy: [facility] #[id number], 1 tabs Oral Daily
--- OUTSIDE RECORDS SUMMARY | 2017-02-17 22:07 | XMS REPORT | Referral Summary ---
Author Author [facility] Organization [facility] Address Unknown Phone Unavailable Care Team Providers Care Legal Document Assistant Name Role Phone Brittany Matias Primary Care Physician [phone] Encounter VC Date(s): 03/09/15 - 03/09/15 [facility] [address] [place] [id number] Discharge Diagnosis: Rheumatoid arthritis Discharge Diagnosis: Therapeutic [...] # 90 tabs, 1 Refill(s), Pharmacy: Via [facility], 1 tabs Oral Daily Start Date: 06/17/15 Status: Ordered levothyroxine 75 mcg (0.075 mg) oral tablet 75 mcg 1 tabs, Oral, Daily, # 90 tabs, 3 Refill(s), Pharmacy: [facility] # [id number], 1 tabs Oral Daily Start Date: 04/08/15 Status: Ordered lisinopril 20 mg oral tablet 20 mg 1 tabs, Oral, Daily, # 30 tabs, 5 Refill(s), Pharmacy: [facility] # [id number] Start Date: 07/14/15 Status: Ordered Plavix 75 mg oral tablet See Instructions, TAKE ONE TABLET BY MOUTH EVERY DAY, # 30 tabs, 2 Refill(s), eRx: [facility] #[id number], TAKE ONE TABLET BY MOUTH EVERY DAY Start Date: 07/15/15 Status: Ordered predniSONE 5 mg oral tablet 7.5 mg 1.5 tabs, Oral, Daily, # 135 tabs, 1 Refill(s), Pharmacy: [facility], 1.5 tabs Oral Daily Start Date: 06/17/15 Status: Ordered Protonix 40 mg oral delayed release tablet See Instructions, TAKE ONE TABLET BY MOUTH EVERY DAY, # 90 tabs, eRx: [facility] #[id number], TAKE ONE TABLET BY MOUTH EVERY DAY Start Date: 06/28/15 Status: Ordered sulfaSALAzine 500 mg oral tablet 1,500 mg 3 tabs, Oral, BID, # 540 tabs, 1 Refill(s), Pharmacy: [facility], 3 tabs Oral BID Start Date: [...] Metabolic Panel Office Visit Level 4 Est 25428 Sedimentation Rate 2.Therapeutic drug monitoring Ordered: Office Visit Level 4 Est 44482 Orders: predniSONE, 7.5 mg 1.5 tabs, Oral, Daily, # 135 tabs, 0 Refill(s), Pharmacy: [facility] #[id number], 1.5 tabs Oral Daily
--- OUTSIDE RECORDS SUMMARY | 2017-02-17 22:07 | XMS REPORT | Referral Summary ---
Author Author [facility] Organization [facility] Address Unknown Phone Unavailable Care Team Providers Care Addictions Recovery Specialist Name Role Phone Brittany Matias Primary Care Physician [phone] Encounter VC Date(s): 06/17/15 - 06/17/15 [facility] [address] [place] [id number] Discharge Diagnosis: Rheumatoid arthritis (disorder) Discharge Diagnosis: Therapeutic drug monitoring Discharge Disposition: 01-Home or Self Care Attending Physician: Miranda Mariee MD Admitting Physician: Miranda Mariee MD Referring Physician: Sammy Matias MD Vital Signs Most recent to 1 oldest [Reference Range]: Temperature Oral 36.7 degC [35.8-37.3 degC] (06/17/15 2:00 PM) Peripheral Pulse 77 bpm Rate [60-100 bpm] (06/17/15 2:00 PM) Blood Pressure 152/78 mmHg [90-140/60-90 mmHg] *HI* (06/17/15 2:00 PM) Problem List Condition Effective Dates Status [...] # 90 tabs, 1 Refill(s), Pharmacy: Via [facility], 1 tabs Oral Daily Start Date: 06/17/15 Status: Ordered levothyroxine 50 mcg (0.05 mg) oral tablet See Instructions, TAKE 1.5 TABLETs BY MOUTH EVERY DAY, # 90 tabs, 1 Refill(s) , eRx: [facility] #[id number], TAKE ONE TABLET BY MOUTH EVERY DAY Start Date: 01/25/15 Status: Ordered levothyroxine 75 mcg (0.075 mg) oral tablet 75 mcg 1 tabs, Oral, Daily, # 90 tabs, 3 Refill(s), Pharmacy: [facility] # [id number], 1 tabs Oral Daily Start Date: 04/08/15 Status: Ordered lisinopril 20 mg oral tablet 20 mg 1 tabs, Oral, Daily, # 30 tabs, 5 Refill(s), Pharmacy: [facility] # [id number] Start Date: 02/09/15 Status: Ordered Plavix 75 mg oral tablet See Instructions, TAKE ONE TABLET BY MOUTH EVERY DAY, # 30 tabs, 2 Refill(s), eRx: [facility] #[id number], TAKE ONE TABLET BY MOUTH EVERY DAY Start Date: 04/07/15 Status: Ordered predniSONE 5 mg oral tablet 7.5 mg 1.5 tabs, Oral, Daily, # 135 tabs, 1 Refill(s), Pharmacy: Via [facility], 1.5 tabs Oral Daily Start Date: 06/17/15 Status: Ordered Protonix 40 mg oral delayed release tablet See Instructions, TAKE ONE TABLET BY MOUTH EVERY DAY, # 90 tabs, 1 Refill(s), eRx: [facility] #[id number], TAKE ONE TABLET BY MOUTH EVERY DAY Start Date: 12/30/14 Status: Ordered sulfaSALAzine 500 mg oral tablet 1,500 mg 3 tabs, Oral, BID, # 540 tabs, 1 Refill(s), Pharmacy: [facility], 3 tabs Oral BID Start [...] Visit Note Author: Miranda Mariee MD Date: 06/17/15 Assessment/Plan 1.Rheumatoid arthritis (disorder) Ordered: Office Visit Level 4 Est 07094 2.Therapeutic drug monitoring Ordered: Office Visit Level 4 Est 43375 Orders: leflunomide, 20 mg 1 tabs, Oral, Daily, # 90 tabs, 1 Refill(s), Pharmacy: [facility], 1 tabs Oral Daily predniSONE, 7.5 mg 1.5 tabs, Oral, Daily, # 135 tabs, 1 Refill(s), Pharmacy: [facility], 1.5 tabs Oral Daily sulfaSALAzine, 1,500 mg 3 tabs, Oral, BID, # 540 tabs, 1 Refill(s), Pharmacy: [facility], 3 tabs Oral BID CBC w/ Differential Comprehensive Metabolic Panel Sedimentation Rate
--- OUTSIDE RECORDS SUMMARY | 2017-02-17 22:07 | XMS REPORT | Referral Summary ---
Author Author [facility] Organization [facility] Address Unknown Phone Unavailable Care Team Providers Care Abstract Manager Name Role Phone Brittany Matias Primary Care Physician [phone] Encounter VC Date(s): 06/17/15 - 06/17/15 [facility] [address] [place] [id number] Discharge Diagnosis: Rheumatoid arthritis (disorder) Discharge Diagnosis: [...] 90 tabs, 1 Refill(s), Pharmacy: [facility], 1 tabs Oral Daily Start Date: 12/09/15 Status: Ordered levothyroxine 75 mcg (0.075 mg) oral tablet 75 mcg 1 tabs, Oral, Daily, # 90 tabs, 3 Refill(s), Pharmacy: [facility] # [id number], 1 tabs Oral Daily Start Date: 04/08/15 Status: Ordered lisinopril 20 mg oral tablet 20 mg 1 tabs, Oral, Daily, # 90 tabs, 3 Refill(s), Pharmacy: [facility] # [id number] Start Date: 12/23/15 Status: Ordered metoprolol succinate 50 mg oral tablet, extended release 50 mg 1 tabs, Oral, Daily, # 30 tabs, 6 Refill(s), Pharmacy: [facility] # [id number] Start Date: 10/13/15 Status: Ordered Plavix 75 mg oral tablet See Instructions, TAKE ONE TABLET BY MOUTH EVERY DAY, # 90 tabs, 3 Refill(s), Pharmacy: [facility] #[id number], TAKE ONE TABLET BY MOUTH EVERY DAY Start Date: 12/23/15 Status: Ordered predniSONE 5 mg oral tablet 7.5 mg 1.5 tabs, Oral, Daily, # 135 tabs, 1 Refill(s), Pharmacy: Via [facility], 1.5 tabs Oral Daily Start Date: 12/09/15 Status: Ordered Protonix 40 mg oral delayed release tablet See Instructions, TAKE ONE TABLET BY MOUTH EVERY DAY, # 90 tabs, 2 Refill(s), eRx: [facility] #[id number], TAKE ONE TABLET BY MOUTH EVERY DAY Start Date: 12/24/15 Status: Ordered sulfaSALAzine 500 mg oral tablet 1,500 mg 3 tabs, Oral, BID, # 540 tabs, 1 Refill(s), Pharmacy: Via [facility], 3 tabs Oral BID Start Date: [...] (disorder) Ordered: Office Visit Level 4 Est 93562 2.Therapeutic drug monitoring Ordered: Office Visit Level 4 Est 25956 Orders: leflunomide, 20 mg 1 tabs, Oral, Daily, # 90 tabs, 1 Refill(s), Pharmacy: [facility], 1 tabs Oral Daily predniSONE, 7.5 mg 1.5 tabs, Oral, Daily, # 135 tabs, 1 Refill(s), Pharmacy: [facility], 1.5 tabs Oral Daily sulfaSALAzine, 1,500 mg 3 tabs, Oral, BID, # 540 tabs, 1 Refill(s), Pharmacy: [facility], 3 tabs Oral BID CBC w/ Differential Comprehensive Metabolic Panel Sedimentation Rate
--- OUTSIDE RECORDS SUMMARY | 2017-02-17 22:07 | XMS REPORT | Referral Summary ---
Author Organization Unknown Address Unknown Phone Unavailable Care Team Providers Care Chargeback Specialist Name Role Phone Brittany Matias Primary Care Physician [phone] Encounter VC Date(s): 12/08/14 - 12/08/14 [facility] [address] [place], [place] [address] Discharge Diagnosis: Therapeutic drug monitoring Discharge Diagnosis: Rheumatoid arthritis Discharge Disposition: Home or Self Care Attending Physician: Miranda Mariee MD Admitting Physician: Miranda Mariee MD Referring Physician: Sammy Matias MD Vital Signs Most recent to 1 oldest [Reference Range]: Temperature Oral 36.4 degC [35.8-37.3 degC] (12/08/14 1:08 PM) Peripheral Pulse 77 bpm Rate [60-100 bpm] (12/08/14 1:08 PM) Blood Pressure 134/61 mmHg [90-140/60-90 mmHg] (12/08/14 1:08 PM) Problem List Condition Effective Dates Status [...] Daily, # 90 tabs, 1 Refill(s), Pharmacy: [facility] #[id number] , 1 tabs Oral Daily Start Date: 12/08/14 Status: Ordered Levothroid 50 mcg (0.05 mg) oral tablet 1 tabs, Oral, Daily, # 30 tabs, 0 Refill(s) Start Date: 03/09/14 Status: Ordered lisinopril 20 mg oral tablet See Instructions, TAKE ONE TABLET BY MOUTH EVERY DAY, # 30 tabs, 5 Refill(s), eRx: [facility] #[id number], TAKE ONE TABLET BY MOUTH EVERY DAY Special Instructions: TAKE ONE TABLET BY MOUTH EVERY DAY Start Date: 07/29/14 Status: Ordered Plavix 75 mg oral tablet 1 tabs, Oral, Daily, # 30 tabs, 0 Refill(s) Start Date: 03/09/14 Status: Ordered predniSONE 5 mg oral tablet 1.5 tabs, Oral, Daily, # 135 tabs, 1 Refill(s), Pharmacy: [facility] # [id number], 1.5 tabs Oral Daily Start Date: 09/08/14 Status: Ordered Protonix 40 mg oral delayed release tablet 1 tabs, Oral, Daily, 0 Refill(s) Start Date: 03/09/14 Status: Ordered sulfaSALAzine 500 mg oral tablet 3 tabs, Oral, BID, # 540 tabs, 1 Refill(s), Pharmacy: [facility] #[id number], 3 tabs Oral BID Start Date: 12/08/14 [...] Visit Note Author: Miranda Mariee MD Date: 12/08/14 Assessment/Plan 1.Rheumatoid arthritis Ordered: CBC w/ Differential Comprehensive Metabolic Panel Office Visit Level 4 Est 66709 Sedimentation Rate 2.Therapeutic drug monitoring Ordered: Office Visit Level 4 Est 89057 Orders: leflunomide, 1 tabs, Oral, Daily, # 90 tabs, 1 Refill(s), Pharmacy: [facility] #[id number], 1 tabs Oral Daily sulfaSALAzine, 3 tabs, Oral, BID, # 540 tabs, 1 Refill(s), Pharmacy: [facility] #[id number], 3 tabs Oral BID
--- OUTSIDE RECORDS SUMMARY | 2017-02-17 22:07 | XMS REPORT | Referral Summary ---
Author Author [facility] Organization [facility] Address Unknown Phone Unavailable Care Team Providers Care Motorized Squad Sergeant Name Role Phone Brittany Matias Primary Care Physician [phone] Encounter VC Date(s): 06/17/15 - 06/17/15 [facility] [address] [place] [id number] Discharge Diagnosis: Rheumatoid arthritis (disorder) [...] # 90 tabs, 1 Refill(s), Pharmacy: Via [facility], 1 tabs Oral Daily Start Date: 06/17/15 Status: Ordered levothyroxine 50 mcg (0.05 mg) oral tablet See Instructions, TAKE 1.5 TABLETs BY MOUTH EVERY DAY, # 90 tabs, 1 Refill(s) , eRx: [facility] #[id number], TAKE ONE TABLET BY MOUTH EVERY DAY Start Date: 01/25/15 Status: Ordered levothyroxine 75 mcg (0.075 mg) oral tablet 75 mcg 1 tabs, Oral, Daily, # 90 tabs, 3 Refill(s), Pharmacy: [facility] # [id number], 1 tabs Oral Daily Start Date: 04/08/15 Status: Ordered lisinopril 20 mg oral tablet 20 mg 1 tabs, Oral, Daily, # 30 tabs, 5 Refill(s), Pharmacy: [facility] # [id number] Start Date: 02/09/15 Status: Ordered Plavix 75 mg oral tablet See Instructions, TAKE ONE TABLET BY MOUTH EVERY DAY, # 30 tabs, 2 Refill(s), eRx: [facility] #[id number], TAKE ONE TABLET BY MOUTH EVERY DAY Start Date: 04/07/15 Status: Ordered predniSONE 5 mg oral tablet 7.5 mg 1.5 tabs, Oral, Daily, # 135 tabs, 1 Refill(s), Pharmacy: Via [facility], 1.5 tabs Oral Daily Start Date: 06/17/15 Status: Ordered Protonix 40 mg oral delayed release tablet See Instructions, TAKE ONE TABLET BY MOUTH EVERY DAY, # 90 tabs, 1 Refill(s), eRx: [facility] #[id number], TAKE ONE TABLET BY MOUTH EVERY DAY Start Date: 12/30/14 Status: Ordered sulfaSALAzine 500 mg oral tablet 1,500 mg 3 tabs, Oral, BID, # 540 tabs, 1 Refill(s), Pharmacy: Via [facility], 3 tabs Oral BID Start [...] Extracted from: Title: Office Visit Note Author: Miranad Mariee MD Date: 06/17/15 Assessment/Plan 1.Rheumatoid arthritis (disorder) Ordered: Office Visit Level 4 Est 81493 2.Therapeutic drug monitoring Ordered: Office Visit Level 4 Est 91244 Orders: leflunomide, 20 mg 1 tabs, Oral, Daily, # 90 tabs, 1 Refill(s), Pharmacy: Via [facility], 1 tabs Oral Daily predniSONE, 7.5 mg 1.5 tabs, Oral, Daily, # 135 tabs, 1 Refill(s), Pharmacy: [facility], 1.5 tabs Oral Daily sulfaSALAzine, 1,500 mg 3 tabs, Oral, BID, # 540 tabs, 1 Refill(s), Pharmacy: Via [facility], 3 tabs Oral BID CBC w/ Differential Comprehensive Metabolic Panel Sedimentation Rate
--- OUTSIDE RECORDS SUMMARY | 2017-02-17 22:07 | XMS REPORT | Referral Summary ---
Author Author [facility] Organization [facility] Address Unknown Phone Unavailable Care Team Providers Care Lead Producer Name Role Phone Brittany Matias Primary Care Physician [phone] Encounter VC Date(s): 03/09/15 - 03/09/15 [facility] [address] [place] [id number] Discharge Diagnosis: Rheumatoid arthritis Discharge [...] # 90 tabs, 1 Refill(s), Pharmacy: Via [facility], 1 tabs Oral Daily Start Date: 06/17/15 Status: Ordered levothyroxine 75 mcg (0.075 mg) oral tablet 75 mcg 1 tabs, Oral, Daily, # 90 tabs, 3 Refill(s), Pharmacy: [facility] # [id number], 1 tabs Oral Daily Start Date: 04/08/15 Status: Ordered lisinopril 20 mg oral tablet 20 mg 1 tabs, Oral, Daily, # 30 tabs, 5 Refill(s), Pharmacy: [facility] # [id number] Start Date: 07/14/15 Status: Ordered Plavix 75 mg oral tablet See Instructions, TAKE ONE TABLET BY MOUTH EVERY DAY, # 30 tabs, 2 Refill(s), eRx: [facility] #[id number], TAKE ONE TABLET BY MOUTH EVERY DAY Start Date: 07/15/15 Status: Ordered predniSONE 5 mg oral tablet 7.5 mg 1.5 tabs, Oral, Daily, # 135 tabs, 1 Refill(s), Pharmacy: Via [facility], 1.5 tabs Oral Daily Start Date: 06/17/15 Status: Ordered Protonix 40 mg oral delayed release tablet See Instructions, TAKE ONE TABLET BY MOUTH EVERY DAY, # 90 tabs, eRx: [facility] #[id number], TAKE ONE TABLET BY MOUTH EVERY DAY Start Date: 06/28/15 Status: Ordered sulfaSALAzine 500 mg oral tablet 1,500 mg 3 tabs, Oral, BID, # 540 tabs, 1 Refill(s), Pharmacy: Via [facility], 3 tabs Oral BID [...] Metabolic Panel Office Visit Level 4 Est 42206 Sedimentation Rate 2.Therapeutic drug monitoring Ordered: Office Visit Level 4 Est 70610 Orders: predniSONE, 7.5 mg 1.5 tabs, Oral, Daily, # 135 tabs, 0 Refill(s), Pharmacy: [facility] #[id number], 1.5 tabs Oral Daily
--- OUTSIDE RECORDS SUMMARY | 2017-02-17 22:07 | XMS REPORT | Referral Summary ---
Author Author [facility], [facility] Organization [facility] Address Unknown Phone Unavailable Care Team Providers Care Dental Scheduling Coordinator Name Role Phone Brittany Matias Primary Care Physician [phone] Encounter VC Date(s): 09/15/16 - 09/15/16 [facility], [address] [place] [id number] Discharge Diagnosis: Shortness of breath Discharge Disposition: 01-Home or Self Care Attending Physician: Sammy Matias MD Admitting Physician: Sammy Matias MD Vital Signs Most recent to 1 oldest [Reference Range]: Temperature Tympanic 36.0 degC [36.6-38.1 degC] *LOW* (09/15/16 10:48 AM) Peripheral Pulse 104 bpm Rate [60-100 bpm] *HI* (09/15/16 10:48 AM) Respiratory Rate 22 br/min [14-20 br/min] *HI* (09/15/16 10:48 AM) Blood Pressure 166/74 mmHg [90-140/60-90 mmHg] *HI* (09/15/16 10:48 AM) SpO2 97 % (09/15/16 10:48 AM) Problem List Condition Effective Dates Status Health [...] 90 tabs, 1 Refill(s), Pharmacy: Via [facility], 1 tabs Oral Daily Start Date: 06/27/16 Status: Ordered Levaquin 500 mg oral tablet 500 mg 1 tabs, Oral, q24hr, X 10 days, # 10 tabs, 0 Refill(s), Pharmacy: [facility] #[id number], 1 tabs Oral q24hr,x10 days Start Date: 09/15/16 Stop Date: 09/25/16 Status: Ordered levothyroxine 88 mcg (0.088 mg) oral tablet See Instructions, TAKE ONE TABLET BY MOUTH DAILY, # 60 tabs, 0 Refill(s), Pharmacy: [facility] #[id number], TAKE ONE TABLET BY MOUTH DAILY Start Date: 08/04/16 Status: Ordered lisinopril 20 mg oral tablet 20 mg 1 tabs, Oral, Daily, # 90 tabs, 3 Refill(s), Pharmacy: [facility] # [id number] Start Date: 12/23/15 Status: Ordered Metoprolol Succinate ER 50 mg oral tablet, extended release See Instructions, TAKE ONE TABLET BY MOUTH DAILY, # 30 tabs, 2 Refill(s), eRx: [facility] #[id number], TAKE ONE TABLET BY MOUTH DAILY Start Date: 05/16/16 Status: Ordered pantoprazole 40 mg oral delayed release tablet See Instructions, TAKE ONE TABLET BY MOUTH EVERY DAY, # 90 tabs, eRx: [facility] #[id number] Start Date: 09/13/16 Status: Ordered Plavix 75 mg oral tablet See Instructions, TAKE ONE TABLET BY MOUTH EVERY DAY, # 90 tabs, 3 Refill(s), Pharmacy: [facility] #[id number], TAKE ONE TABLET BY MOUTH EVERY DAY Start Date: 12/23/15 Status: Ordered predniSONE 5 mg oral tablet 7.5 mg 1.5 tabs, Oral, Daily, # 135 tabs, 1 Refill(s), Pharmacy: Via [facility], 1.5 tabs Oral Daily Start Date: 06/27/16 Status: Ordered Sulfazine 500 mg oral tablet See Instructions, TAKE 3 TABLETS BY MOUTH TWICE A DAY, # 540 unknown unit, 0 Refill(s), Pharmacy: Via [facility], TAKE 3 TABLETS BY MOUTH TWICE A DAY Start Date: 06/27/16 Status: Ordered Results Hematology Most recent to 1 oldest [Reference Range]: WBC [5.0-10.0 5.0 10*3/uL 10*3/uL] (09/15/16 11:25 AM) RBC [3.70-5.20] 3.66 *LOW* (09/15/16 11:25 AM) Hgb [12.0-16.0 10.6 gm/dL gm/dL] *LOW* (09/15/16 11:25 AM) Hct [40.0-54.0 %] 33.0 % *LOW* (09/15/16 11:25 AM) MCV [80.0-96.0 fL] 90.2 fL (09/15/16 11:25 AM) MCH [26.0-34.0 pg] 29.0 pg (09/15/16 11:25 AM) MCHC [32.0-36.0 32.1 gm/dL gm/dL] (09/15/16 11:25 AM) RDW [0.0-14.5 %] 16.6 % *HI* (09/15/16 11:25 AM) Platelet [150-400 247 10*3/uL 10*3/uL] (09/15/16 11:25 AM) MPV [8.8-14.8 fL] 10.3 fL (09/15/16 11:25 AM) Neutrophils [50-70 78 % %] *HI* (09/15/16 11:25 AM) Lymphocytes [20-40 12 % %] *LOW* (09/15/16 11:25 AM) Monocytes [4-8 %] 5 % (09/15/16 11:25 AM) Eosinophils [0-6 %] 5 % (09/15/16 11:25 AM) Basophils [0-2 %] 0 % (09/15/16 11:25 AM) Neutro Absolute 3.92 [2.50-7.00] (09/15/16 11:25 AM) Lymph Absolute 0.60 [1.00-4.00] *LOW* (09/15/16 11:25 AM) [place] Absolute 0.25 [0.20-0.80] (09/15/16 11:25 AM) Eos Absolute 0.26 [0.00-0.60] (09/15/16 11:25 AM) Baso Absolute 0.01 [0.00-0.30] (09/15/16 11:25 AM) Immunizations Given and Recorded Vaccine Date Status [...] Visit Note Author: Sammy Matias MD Date: 09/15/16 Assessment/Plan 1.Shortness of breath His chest x-ray looks okay. CBC is still pending. I see no obvious signs of infection orother significant lung problem. We'll monitor things over the next few days or symptoms progress or worsen he'll let us know. Continue current medications without any change. Ordered: CBC w/ Differential Office Visit Level 3 Est 70933 XR Chest 2 Views
--- OUTSIDE RECORDS SUMMARY | 2017-02-17 22:07 | XMS REPORT | Referral Summary ---
Author Author [facility] Organization [facility] Address Unknown Phone Unavailable Care Team Providers Care [employer] Police Officer Name Role Phone Brittany Matias Primary Care Physician [phone] Encounter VC Date(s): 06/27/16 - 06/27/16 [facility] Rhe[facility] [address] [place] [id number] Discharge Diagnosis: Rheumatoid arthritis Discharge Diagnosis: Therapeutic drug monitoring Discharge Disposition: 01-Home or Self Care Attending Physician: Miranda Mariee MD Admitting Physician: Miranda Mariee MD Referring Physician: Sammy Matias MD Vital Signs Most recent to 1 oldest [Reference Range]: Temperature Oral 36.5 degC [35.8-37.3 degC] (06/27/16 2:06 PM) Peripheral Pulse 73 bpm Rate [60-100 bpm] (06/27/16 2:06 PM) Blood Pressure 126/98 mmHg [90-140/60-90 mmHg] (06/27/16 2:06 PM) Problem List Condition Effective Dates Status [...] Oral Daily Start Date: 06/27/16 Status: Ordered levothyroxine 88 mcg (0.088 mg) oral tablet See Instructions, TAKE ONE TABLET BY MOUTH DAILY, # 60 tabs, eRx: [facility] #[id number], TAKE ONE TABLET BY MOUTH DAILY Start Date: 06/08/16 Status: Ordered lisinopril 20 mg oral tablet 20 mg 1 tabs, Oral, Daily, # 90 tabs, 3 Refill(s), Pharmacy: [facility] # [id number] Start Date: 12/23/15 Status: Ordered Metoprolol Succinate ER 50 mg oral tablet, extended release See Instructions, TAKE ONE TABLET BY MOUTH DAILY, # 30 tabs, 2 Refill(s), eRx: [facility] #[id number], TAKE ONE TABLET BY MOUTH DAILY Start Date: 05/16/16 Status: Ordered Plavix 75 mg oral tablet See Instructions, TAKE ONE TABLET BY MOUTH EVERY DAY, # 90 tabs, 3 Refill(s), Pharmacy: [facility] #[id number], TAKE ONE TABLET BY MOUTH EVERY DAY Start Date: 12/23/15 Status: Ordered predniSONE 5 mg oral tablet 7.5 mg 1.5 tabs, Oral, Daily, # 135 tabs, 1 Refill(s), Pharmacy: Via [facility], 1.5 tabs Oral Daily Start Date: 06/27/16 Status: Ordered Protonix 40 mg oral delayed release tablet See Instructions, TAKE ONE TABLET BY MOUTH EVERY DAY, # 90 tabs, 2 Refill(s), eRx: [facility] #[id number], TAKE ONE TABLET BY MOUTH EVERY DAY Start Date: 12/24/15 Status: Ordered Sulfazine 500 mg oral tablet See Instructions, TAKE 3 TABLETS BY MOUTH TWICE A DAY, # 540 unknown unit, 0 Refill(s), Pharmacy: [facility], TAKE 3 TABLETS BY MOUTH TWICE A DAY Start Date: 06/27/16 Status: Ordered Results No data available for [...] Visit Note Author: Miranda Mariee MD Date: 06/27/16 Assessment/Plan 1.Rheumatoid arthritis Ordered: CBC w/ Differential Comprehensive Metabolic Panel Office Visit Level 4 Est 15735 Return to Clinic Sedimentation Rate 2.Therapeutic drug monitoring Ordered: CBC w/ Differential Comprehensive Metabolic Panel Office Visit Level 4 Est 00151 Return to Clinic Sedimentation Rate Referrals to Other Providers Referred by: Miranda Mariee MD
[2017-02-17 22:10] VITALS: Ht 162.6 cm; Wt 61.9 kg
--- OUTSIDE RECORDS SUMMARY | 2017-02-17 22:13 | XMS REPORT | Continuity of Care Document ---
Author Author [facility] Organization [facility] Address Unknown Phone Unavailable Allergies Active Description [...] Status Pt. Type Provider Facility Loc./Unit Complaint [id number] 12/10/2013 07:26:00 12/10/2013 23 :59:59 CLS Outpatient
--- NOTE | 2017-02-17 22:14 | ERPDOC ---
Departure Disposition Decision Date: February 18, 2017 Disposition Decision Time: 00:04 Disposition: 01 DISCHARGED HOME, SELF-CARE Impression Impression Impression: Primary Impression: Weakness Severity: Moderate Condition: Stable Seen By: Mid-level only Referrals: DILMA ROTH MD (Family) Patient Instructions: Weakness (ED) Problems/Meds/Labs Reviewed?: Yes Medications reviewed and manag: Yes Additional Instructions: Your labs and CT today are normal. I do want you to go ahead and follow up with your primary care provider if you have any further issues/concerns. Follow up care ordered?: Yes Mental Status: Alert HPI - General Medical General Stated Complaint: FALL Time Seen by Provider: 22:05 Source: patient, EMS Exam Limitations: no limitations HPI - General Medical Initial Comments He is brought in [facility] by EMS. Was at home this morning and was getting up to go to the bathroom as he was feeling nauseated. He started to feel weak on the right side and states that he crumpled to the floor. He did not have any injury from this fall and did not hit his head. Was able to get up and get back to the chair but states that he was feeling like he had some right sided weakness for about 3-4 hours. It then did resolve and he denies any weakness at this time. He lives with his brother and his brother wanted to have him come to [facility] for evaluation due to the fall. He denies any headache or numbness/tingling. Has not had a fever or any other c/o tonight. Occurred At: home Onset: Gradual Duration: 12-24 hrs Severity: moderate Associated Symptoms: nausea/vomiting (nausea this morning only), DENIES: chest pain, cough, diaphoresis, fever/chills, headaches, loss of appetite, malaise, rash, seizure, shortness of breath, syncope, weakness Hx of Similar Symptoms: No Allergies: Coded Allergies: No Known Allergies (Verified , 12/27/11) Past History Past Medical History Metabolic: hypertension, hypothyroidism Cardiac: other GI: GERD Neurological: neuropathy, other Musculoskeletal: rheumatoid arthritis Integumentary: other Surgical History Cardiac: aneurysm repair, carotid endarterectomy, other Joint: foot, knee Family History Family PMH: FOUND: other Vaccines Hx Influenza Vaccination: Yes (JUN 2010) Hx Pneumococcal Vaccination: No Social History Smoking Status: Never smoker Substance Use Type: does not use Alcohol Intake: none Review of Systems Constitutional Constitutional: DENIES: chills, dizziness, fatigue, fever, weakness Eyes Vision: DENIES: blurring, double vision ENMT Ears: DENIES: drainage, pain Sinuses: DENIES: congestion, rhinorrhea Mouth/Throat: DENIES: painful swallowing, scratchy throat, sore throat Cardiovascular Cardiac: DENIES: chest pain, orthopnea Rhythm/Rate: DENIES: irregular beat, palpitations Pulmonary Respiratory: DENIES: cough, dyspnea, sputum, tachypnea GI Upper Abdomen: nausea (this morning, none now), DENIES: pain, vomiting Lower Abdomen: DENIES: constipation, diarrhea, pain Neurological General: DENIES: headache, numbness, tingling, weakness Physical Exam General General Nourishment: well nourished, well developed, appears stated age, no acute distress, adult General Body Habitus: well groomed Vitals and Pain First Documented Vital Signs Date Time Temp Pulse Resp B/P Pulse Ox O2 Delivery O2 Flow Rate FiO2 02/17/17 22:10 214/100 02/17/17 22:10 98.8 83 18 93 Room Air Weight: Kilograms: Height (feet): Height (inches): Triage Pain Scale: RN VS reviewed by Provider: Yes Normal Exams: Neck: Full range of motion, without adenopathy, JVD, bruits or thyromegaly Chest/Resp: Clear all cline, with good airflow, and symmetry bilaterally CV: Regular rate and rhythm, without murmur or gallop, Pulses 2+ all extremities, capillary refill, <2 seconds all ext., no pedal edema noted Abdomen: Bowel sounds positive, soft, non-tender, non-distended, no hepatosplenomegaly, masses or bruits noted Lymphatic: No lymphadenopathy, or lymphedema noted Integumentary: No rashes, hives, or bruising noted Neurologic: Patient is alert, and oriented Psychiatric: Patient exhibits, appropriate attention, emotion and affect Differential Diagnoses Considering: CVA, Hypo/Hyperglycemia, Hypo/Hyperkalemia, Hypo/Hypernatremia, Medication Effect, Metabolic, UTI Progress Results/Orders Orders Procedure Category Date Status Time EKG EKG 02/17/17 Taken Iv Lock (Ed Only) EDM 02/17/17 Transmitted 22:12 Troponin I W LAB 02/17/[address] Head W/O Contrast CT 02/17/17 Resulted Cbc W/Auto LAB 02/17/17 Complete Diff-Reflex Manual Cmp - Comprehensive LAB 02/17/17 Complete Metabolic Ua, Dip Wreflex LAB 02/17/17 Complete Microsc & Surveillance Inspector 22:12 Lab Results Laboratory Tests Test 02/17/17 22:12 02/17/17 23:12 02/17/17 23:48 Glucometer 111mg/dL White Blood Count 4.8T/MM3 Red Blood Count 3.93M/MM3 Hemoglobin 11.4GM/DL Hematocrit 35.0% Mean Corpuscular Volume 89.1UM3 Mean Corpuscular Hemoglobin 29.0UUG Mean Corpuscular Hemoglobin Concent 32.6GM/DL RDW Standard Deviation 54.4FL Platelet Count 220T/MM3 Mean Platelet Volume 11.1UM3 Immature Granulocyte % (Auto) 0.2% Neutrophils (%) (Auto) 78.0% Lymphocytes (%) (Auto) 12.5% Monocytes (%) (Auto) 6.2% Eosinophils (%) (Auto) 2.7% Basophils (%) (Auto) 0.4% Absolute Immature Granulocyte (auto 0.01T/MM3 Absolute Neutrophils (auto) 3.8T/MM3 Absolute Lymphocytes (auto) 0.6T/MM3 Absolute Monocytes (auto) 0.3T/MM3 Absolute Eosinophils (auto) 0.1T/MM3 Absolute Basophils (auto) 0.0T/MM3 Turbidity < 20 Sodium Level 143MEQ/L Potassium Level 3.9MEQ/L Chloride Level 109MEQ/L Carbon Dioxide Level 22MEQ/L Anion Gap 12MEQ/L Blood Urea Nitrogen 13.0MG/DL Creatinine 0.7MG/DL Glomerular Filtration Rate Calc 111 BUN/Creatinine Ratio 19RATIO Glucose Level 109MG/DL Calculated Osmolality 276MOSM/KG Calcium Level 9.6MG/DL Total Bilirubin 0.40MG/DL Icterus Index < 2 Aspartate Amino Transf (AST/SGOT) 24U/L Alanine Aminotransferase (ALT/SGPT) 20U/L Alkaline Phosphatase 80U/L Troponin I 0.055ng/ml Total Protein 7.3G/DL Albumin 3.9G/DL Globulin 3.4G/DL Albumin/Globulin Ratio 1.1RATIO Chemistry Specimen Hemolysis 37 Urine Collection Type Cleancatch-midstream Urine Color Yellow Urine Turbidity Clear Urine pH 6.0 Urine Specific [place] 1.010 Urine Protein Trace Urine Glucose (UA) Negative Urine Ketones Negative Urine Blood Trace-intact Urine Nitrite Negative Urine Bilirubin Negative Urine Urobilinogen 0.2EU/DL Urine Leukocyte Esterase Negative Urinalysis Comment Microscopic not ind. Progress Progress 5- CT head without bleed or mass effect CBC is normal. CMP is normal today. UA is clear. Troponin is 0.055 today. EKG is without ST elevation or ectopy. He has no c/o this time. Will go ahead and let him go home today. Have him follow up with his primary care provider for reevaluation this week. CT CT : Reason for Exam: right sided weakness CT: Head no contrast Interpretation: Normal EDWIN VALADEZ APRN February 17, 2017 22:14
[2017-02-17] MEDS ORDERED: LISI-621 PO (22:37)
[2017-02-17] MEDS ORDERED: METO-277 PO (22:37)
[2017-02-17] MEDS ORDERED: SULF500T8 PO (22:37)
[2017-02-17] MEDS ORDERED: LEVO100T12 PO (22:37)
[2017-02-17 23:17] LABS: BASOPHILS % (AUTO) 0.4 % (0-2); EOSINOPHILS # (AUTO) 0.1 T/MM3 (0-0.5); EOSINOPHILS % (AUTO) 2.7 % (0-4); HGB - HEMOGLOBIN 11.4 GM/DL (13.5-17.5); IMMATURE GRANULOCYTE # (AUTO) 0.01 T/MM3 (0.00-0.03); IMMATURE GRANULOCYTE % (AUTO) 0.2 % (0.0-0.5); LYMPHOCYTES # (AUTO) 0.6 T/MM3 (1-4.8); LYMPHOCYTES % (AUTO) 12.5 % (23-45); MEAN CORPUSCULAR HGB CONC(MCHC 32.6 GM/DL (31-37); MEAN CORPUSCULAR VOLUME 89.1 UM3 (80-100); MEAN PLATELET VOLUME 11.1 UM3 (9.4-12.4); MONOCYTES # (AUTO) 0.3 T/MM3 (0-0.8); MONOCYTES % (AUTO) 6.2 % (0-9.0); NEUTROPHILS #(AUTO)-ABSOLUTE 3.8 T/MM3 (1.8-7.7); RED BLOOD COUNT 3.93 M/MM3 (4.50-5.90); WBC - WHITE BLOOD COUNT 4.8 T/MM3 (4.5-11.0)
[2017-02-17 23:26] LABS: ALBUMIN 3.9 G/DL (3.5-5.0); ALBUMIN/GLOBULIN RATIO 1.1 RATIO (1.1-2.2); ALKALINE PHOSPHATASE 80 U/L (38-126); ALT (SGPT) 20 U/L (21-72); ANION GAP 12 MEQ/L (5-15); AST (SGOT) 24 U/L (17-59); BUN/CREATININE RATIO 19 RATIO (6-26); CALCIUM 9.6 MG/DL (8.4-10.2); CHLORIDE 109 MEQ/L (98-107); CO2 - CARBON DIOXIDE 22 MEQ/L (22-30); CREATININE 0.7 MG/DL (0.8-1.5); GLOMERULAR FILTRATION RATE 111; GLUCOSE 109 MG/DL (75-110); POTASSIUM 3.9 MEQ/L (3.6-5); SODIUM 143 MEQ/L (134-144); TOTAL PROTEIN 7.3 G/DL (6.3-8.2)
[2017-02-17 23:57] LABS: BLOOD, URINE TRACE-INTACT (NEGATIVE); COLOR,URINE YELLOW (YELLOW); LEUKOCYTE ESTERASE ,URINE NEGATIVE (NEGATIVE); NITRITE,URINE NEGATIVE (NEGATIVE); UROBILINOGEN,URINE 0.2 EU/DL (NORMAL)
[2017-02-18 00:20] VITALS: BP 141/87; PULSE 80; RESP 18; TEMP 98.8; O2SAT 95
--- NOTE | 2017-02-18 08:50 | DI ---
Indication: ITS.REASON: right sided weakness PROCEDURE: CT HEAD W/O CONTRAST: Encounter: Initial Comparison: July 25, 2010 Technique: Axial CT images through the head were performed without contrast. Iterative Reconstruction dose reducing technique was utilized. FINDINGS: The ventricles are of normal size, shape, and contour for the patient's age. New focal low-attenuation lesion in the left subinsular frontal lobe on axial image #23 measuring 7 mm in size could represent a subacute or chronic lacunar infarct. There are scattered areas of low attenuation in the white matter which most likely represent changes from chronic microvascular ischemia. The brainstem, cerebellum, and cerebral hemispheres otherwise have a normal morphology and CT attenuation. There is no evidence of midline displacement. No hemorrhage, signs of acute territorial stroke, mass effect, mass lesions, or edema is evident. The visualized portions of the skull base, midface, and calvarium demonstrate no abnormality. Mild ethmoid sinus disease. The tympanic and mastoid cavities appear normal. IMPRESSION: No acute intracranial abnormality or hemorrhage. New but subacute to chronic appearing left frontal lacunar infarct. MRI can be performed for further evaluation if there is continued clinical concern for acute ischemia. There is a preliminary report by [employer]. .
== END 2017-02-18 00:20 | disposition home or self-care (01) ==
LOC: ED 22:02
DX: Z04.3 Encounter for examination and observation following other accident (principal); R53.1 Weakness; R11.0 Nausea; W18.39XA Other fall on same level, initial encounter; Y93.89 Activity, other specified; Y92.009 Unspecified place in unspecified non-institutional (private) residence as the place of occurrence of the external cause; Y99.8 Other external cause status
CPT/HCPCS: 36415; 80053; 81003; 82948; 84484; 85025; 93005

== ENCOUNTER 2018-04-23 10:43 | Inpatient (IN) ==
[2018-04-23] MEDS ORDERED: ONDANSETRON 4 MG/2 ML INJECTION IVP PRN ×2 (10:58→15:54)
[2018-04-23] MEDS ORDERED: LIDOCAINE 1% (10mg/ml) 2mL INJ PF SDV ID ONE (10:58)
[2018-04-23] MEDS ORDERED: MORPHINE SULFATE 10mg/ml INJECTION IV PRN (10:58)
[2018-04-23 11:08] VITALS: BMI 26.4
[2018-04-23] MEDS ORDERED: CEFAZOLIN 1 G INJECTION IVP ONE (11:13)
--- NOTE | 2018-04-23 11:19 | Anesthesia Preoperative Report ---
<Chilango Vasquez - Last Filed: 04/23/18 11:18> Anesthesia Preoperative Record - Date and Time Date: 04/23/18 Preoperative Diagnosis: Ulcer Proposed Procedure: Right stump revision NPO Since Date: 04/23/18 NPO Since Time: 00:00 Allergies/Adverse Reactions: Allergies Allergy/AdvReac Type Severity Reaction Status Date / Time No Known Allergies Allergy Unknown Verified 04/23/18 11:16 - Vital Signs Vital Signs: Temperature 98.2 F 04/23/18 11:07 Pulse Rate 80 04/23/18 11:07 Respiratory Rate 16 04/23/18 11:07 Blood Pressure 140/76 H 04/23/18 11:07 Pulse Oximetry 94 04/23/18 11:07 Height and Weight: Height 1.6 m Weight 67.7 kg Body Mass Index 26.4 - Medications Inpatient Medications: Current Medications Hydrocodone Bitart/Acetaminophen (Blakely 5/325) 1 - 2 tab PO Q4H PRN PRN Reason: Pain Cefazolin Sodium (Kefzol 1 Gm Vial) 1 g IVP PREOP ONE Stop: 04/23/18 11:14 Lactated Ringer's (Lactated Ringers) 1,000 mls @ 50 mls/hr IV .Q20H [place] Morphine Sulfate (Morphine Sulfate Inj) 2 - 10 mg IV Q1H PRN PRN Reason: Pain Ondansetron HCl (Zofran) 4 mg IVP Q6H PRN PRN Reason: Nausea &/or vomiting Sodium Chloride (Iv Flush) 10 ml IV PRN PRN PRN Reason: Flushing Home Medications: Home Medications Medication Instructions Recorded Confirmed Type Metoprolol Succinate 50 mg PO PM #0 tab 02/17/17 04/23/18 History SulfaSALAzine [Azulfidine] 1,500 mg PO BID #0 tab 02/17/17 04/23/18 History Clopidogrel Bisulfate [Clopidogrel] 75 mg PO DAILY 12/24/17 04/23/18 History Levothyroxine Sodium 125 mcg PO ACB 12/24/17 04/23/18 History Lisinopril [Prinivil] 20 mg PO DAILY 12/24/17 04/23/18 History Pantoprazole Sodium [Protonix] 40 mg PO ACB 12/24/17 04/23/18 History Acetaminophen [Tylenol] 650 mg PO Q4H PRN 04/04/18 04/23/18 History Albuterol HFA Inhaler [Ventolin 2 puff INH Q4H PRN 04/04/18 04/23/18 History Hfa 90 mcg/actuation] Leflunomide 20 mg PO DAILY 04/04/18 04/23/18 History Umeclidinium Brm/Vilanterol Tr 1 each IH DAILY 04/04/18 04/23/18 History [Anoro Ellipta 62.5-25 Mcg INH] Is Patient on Beta Fanny?: Yes Beta Fanny Last Dose Date/Time: Metoprolol 04/21/18 - Medical History Respiratory: Reports: Chronic Obstructive Pulmonary Disease (COPD), Dyspnea Cardiovascular: Reports: Hypertension Gastrointestional: Reports: Gastroesophageal Reflux Disease Neuro/Musculoskeletal: Reports: Cerebrovascular Accident, Other (RA) Renal/Endocrine: Reports: Thyroid Disease - Surgical History Cardiac Surgeries/Treatments: Reports: Other (AAA repair; right carotid endarterectomy) Musculoskeletal Surgery/Tx: Reports: Knee Arthroscopy (right knee arthroscopy), Orthopedic Surgery (RIGHT ABOVE KNEE AMPUTEE), Other (breanna bunionectomy) Anesthesia Reactions: None Hx Family Anesthesia Reaction: No History of Motion Sickness: No - Social History Smoking Status: Former smoker Hx Chewing Tobacco Use: No Second Hand Exposure: No Substance Use Type: does not use Alcohol Intake Frequency: does not drink - Pertinent Findings EKG: Sinus Rhythm - Physical Exam Respiratory Exam: Present: lungs clear Cardiovascular Exam: Present: regular rate and rhythm - Airway Assessment Mallampati Score: II TMD: 3 Fingerbreadths Neck Extension: fair Teeth: upper dentures, lower dentures Overall Assessment: may be difficult intubation - ASA ASA Score: 3 - Plan Anesthesia: General TIVA - Discussion Discussion: Discussed risks/options/alternatives of anesthesia and questions answered. Patient consents. Nursing pain assessment noted. Attestation Statement: Prior to the delivery of any anesthetic medication, I examined the patient, developed the plan, obtained the patient's consent and discussed the risk and benefits of the procedure with the patient/guardian. - Additional Information Seen by Anesthesia: Yes <Ganesh Cole - Last Filed: 04/23/18 12:15> Anesthesia Preoperative Record - Date and Time Date: 04/23/18 Preoperative Diagnosis: Ulcer NPO Since Date: 07/30/18 - Vital Signs Vital Signs: Temperature 98.2 F 04/23/18 11:07 Pulse Rate 81 04/23/18 11:44 Respiratory Rate 16 04/23/18 11:07 Blood Pressure 140/76 H 04/23/18 11:07 Pulse Oximetry 94 04/23/18 11:07 Height and Weight: Height 1.6 m Weight 67.7 kg Body Mass Index 26.4 - Medications Inpatient Medications: Current Medications Hydrocodone Bitart/Acetaminophen (Blakely 5/325) 1 - 2 tab PO Q4H PRN PRN Reason: Pain Lactated Ringer's (Lactated Ringers) 1,000 mls @ 50 mls/hr IV .Q20H [place] Last Admin: 04/23/18 11:40 Dose: 50 mls/hr Morphine Sulfate (Morphine Sulfate Inj) 2 - 10 mg IV Q1H PRN PRN Reason: Pain Ondansetron HCl (Zofran) 4 mg IVP Q6H PRN PRN Reason: Nausea &/or vomiting Sodium Chloride (Iv Flush) 10 ml IV PRN PRN PRN Reason: Flushing - Plan Anesthesia: General Inhalation Gases - Discussion Discussion: Discussed risks/options/alternatives of anesthesia and questions answered. Patient consents. Nursing pain assessment noted. Attestation Statement: Prior to the delivery of any anesthetic medication, I examined the patient, developed the plan, obtained the patient's consent and discussed the risk and benefits of the procedure with the patient/guardian.
[2018-04-23] MEDS: LR 1,000 ML IV SCH ×2 (11:40→15:15)
[2018-04-23] MEDS ORDERED: FentaNYL 250 MCG/5 ML INJECTION ONE (13:38)
[2018-04-23] MEDS ORDERED: PROPOFOL 20 ML ONE (13:38)
[2018-04-23] MEDS ORDERED: MIDAZOLAM 2mg/2ml INJECTION ONE (14:38)
[2018-04-23] MEDS ORDERED: SALINE FLUSH 10ml SYRINGE ONE ×2 (14:49→15:12)
[2018-04-23] MEDS ORDERED: EPHEDRINE 50mg/ml INJECTION ONE (14:49)
[2018-04-23] MEDS ORDERED: PHENYLEPHRINE INJ 10 MG/ML VIAL IV ONE (15:12)
[2018-04-23] MEDS ORDERED: METOCLOPRAMIDE 10mg/2ml INJECTION IVP PRN (15:54)
[2018-04-23] MEDS ORDERED: HYDROMORPHONE 2 MG/ML INJECTION IVP PRN (15:54)
--- NOTE | 2018-04-23 15:55 | Anesthesia Postoperative Note ---
- Date and Time Date: 04/23/18 Time: 15:55 - Status Patient Participated in Evaluation: Patient Participated in Person Vital Signs: Temperature 98.2 F 04/23/18 11:07 Pulse Rate 81 04/23/18 11:44 Respiratory Rate 16 04/23/18 11:07 Blood Pressure 140/76 H 04/23/18 11:07 Pulse Oximetry 94 04/23/18 11:07 Respiratory Function: Airway Patent Cardiovascular Function: Regular Pulse EKG: Sinus Rhythm Mental Status: Alert and Oriented Pain Intensity: 9 Hydration: IV Infusing Nausea/Vomiting: None Complications During Recover: None Apparent - Follow-Up Instructions Instructions: Per Surgeon
[2018-04-23] MEDS: FentaNYL 100 MCG/2 ML INJECTION IVP PRN ×2 (15:58→16:05)
[2018-04-23] MEDS ORDERED: VANCOMYCIN - PHARMACY CONSULT MC ONE (16:44)
--- NOTE | 2018-04-23 18:50 | Pharmacy Consult-Antibiotics ---
Pharmacy Consult-Vancomycin - Consult Information VANCOMYCIN CONSULT: INITIAL Dx: Revision/Debridement of R AKA site for chronic ulcer Current Renal Fx: SCr = 0.7 mg/dl. Will give Vancomycin 1500 mg IV once as a loading dose. Vancomycin 1250 mg IV q18hrs thereafter. Will continue to monitor and adjust regimen to maintain therapeutic levels. Thank you. Lynette Dunbar, PharmD
[2018-04-23] MEDS: LISINOPRIL 20 MG TABLET PO SCH (20:52)
[2018-04-23] MEDS ORDERED: VANCOMYCIN 1,500 MG in NS 500 ML IV ONE (21:00)
[2018-04-23] MEDS: HYDROCODONE/APAP 5mg/325mg TABLET PO PRN (21:07)
--- NOTE | 2018-04-23 21:34 | Operative Note ---
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 PROCEDURE Exploration of right above-knee amputation wound with debridement, bone biopsy and wound VAC placement. SURGEON John Patel MD ANESTHESIA General. COMPLICATIONS None. DESCRIPTION OF PROCEDURE Mr. Meek and his right AKA stump were identified and marked in the preoperative holding area. He was brought back to the operating suite and placed supine on the operating table. He was placed under general anesthesia. The right lower extremity was prepped and draped in my normal sterile fashion. Time-out was performed. The wound directly over the end of his femur measured 3 cm x 2 cm. There was a partial-thickness pressure ulcer inferior to the wound measuring 60 mm x 43 mm. It had 50% slough present. I began by debriding any soft tissue which appeared necrotic within the wound. This was done with electrocautery. I exposed the soft tissue around the distal femur back for 2 cm. I then made an osteotomy, removing 2 cm of distal femoral diaphysis. This was sent for pathology. The remaining bone edges were smoothed out with a saw. I fully irrigated the wound using 6 L of normal saline. I then used a sharp curette to debride the partial-thickness pressure ulceration. I then placed Adaptic over the end of the bone. A wound VAC was placed over the end of the bone as well as over the pressure ulceration set to 125 mmHg continuous suction. It achieved a good seal. Drapes were then removed. He was allowed to awaken from general anesthesia and taken to the recovery room under the care of Anesthesia. He tolerated the procedure well. There were no complications. MAYTE
[2018-04-23] MEDS ORDERED: MAG-AL + SIM ORAL LIQUID 30ml PO PRN (23:45)
[2018-04-24] MEDS ORDERED: ALBUTEROL 2.5mg/3ml (0.083%) NEB AEROSOL PRN (04:30)
[2018-04-24] MEDS: HYDROCODONE/APAP 5mg/325mg TABLET PO PRN ×3 (05:58→18:28)
[2018-04-24] MEDS: LEVOTHYROXINE 125 MCG TABLET PO SCH (06:00)
[2018-04-24] MEDS: PANTOPRAZOLE 40 MG TABLET PO SCH (06:01)
[2018-04-24] MEDS: SALINE FLUSH 10ml SYRINGE IV PRN (06:10)
[2018-04-24] MEDS: ALBUTEROL/IPRATROPIUM 2.5mg-0.5mg/3ml NEB AEROSOL SCH ×3 (08:00→15:30)
[2018-04-24] MEDS: ACETAMINOPHEN 325 MG TABLET PO PRN (08:35)
[2018-04-24] MEDS: LISINOPRIL 20 MG TABLET PO SCH (08:38)
[2018-04-24] MEDS: CLOPIDOGREL 75 MG TABLET PO SCH (08:43)
[2018-04-24] MEDS ORDERED: NON-FORMULARY MEDICATION 1 EACH EACH (Umeclidinium Brm/Vilanterol Tr [Anoro Ellipta 62.5-2 IH SCH (09:00)
--- NOTE | 2018-04-24 09:18 | Infectious Disease Consult ---
Infectious Disease Consult Date of Consultation: 04/24/18 Requesting Physician: David Patel Reason for Consultation: antibiotic recs History of Present Illness: Mr. Meek is a 72 y/o man with RA, who is s/p R AKA several years ago. He developed a wound on the R AKA stump about 2-3 week ago. This progressed to the point that bone was exposed. He was admitted by Dr. Patel and taken to the OR for revision of his stump yesterday. The gram stain is negative, and culture is pending. He had a wound VAC placed. THe patient reports that he's had pain at this site, but denies other complaints. Records indicate that he's been on keflex recently, but the patient denies any recent antibiotics. Medications Home Medications Medication Instructions Recorded Confirmed Type Metoprolol Succinate 50 mg PO PM #0 tab 02/17/17 04/23/18 History SulfaSALAzine [Azulfidine] 1,500 mg PO BID #0 tab 02/17/17 04/23/18 History Clopidogrel Bisulfate [Clopidogrel] 75 mg PO DAILY 12/24/17 04/23/18 History Levothyroxine Sodium 125 mcg PO ACB 12/24/17 04/23/18 History Lisinopril [Prinivil] 20 mg PO DAILY 12/24/17 04/23/18 History Pantoprazole Sodium [Protonix] 40 mg PO ACB 12/24/17 04/23/18 History Acetaminophen [Tylenol] 650 mg PO Q4H PRN 04/04/18 04/23/18 History Albuterol HFA Inhaler [Ventolin 2 puff INH Q4H PRN 04/04/18 04/23/18 History Hfa 90 mcg/actuation] Umeclidinium Brm/Vilanterol Tr 1 each IH DAILY 04/04/18 04/23/18 History [Anoro Ellipta 62.5-25 Mcg INH] Leflunomide 1 tab PO DAILY 04/23/18 04/23/18 History Allergies Allergy/AdvReac Type Severity Reaction Status Date / Time No Known Allergies Allergy Unknown Verified 04/23/18 11:16 PFSH Patient Stated Medical History Cerebrovascular Accident Yes Other HEENT Yes: wears glasses Hypertension Yes Chronic Obstructive Pulmonary Yes Disease (COPD) Gastroesophageal Reflux Yes Disease Other Musculoskeletal Yes: RA Shingles Yes: h/o PVD COPD GERD H/o CVA Surgical History: R AKA 2011. Revision R AKA 2018. Bunionectomy. AAA repair. R CEA Family History: Mother had DM and lymphoma Father had a brain tumor - Social History Smoking status: Former smoker second hand exposure: No Substance use type: does not use Alcohol intake frequency: does not drink Current occupational status: retired (teacher) Does patient use chewing tobacco?: No Review of Systems All systems PM: 10-point ROS was reviewed, no additional remarkable complaints except - Constitutional Constitutional: Absent: chills, fever(s), headache(s) - EENMT Eyes: Absent: change in vision - Musculoskeletal Musculoskeletal Comments: pain at R AKA stump site - Integumentary/Breasts Integumentary: Absent: rash Exam Vital Signs: Temperature 97.3 F 04/24/18 07:56 Pulse Rate 73 04/24/18 07:56 Respiratory Rate 20 04/24/18 08:10 Blood Pressure 116/69 04/24/18 07:56 Pulse Oximetry 99 04/24/18 08:10 Height/Weight/BMI: Height 1.6 m Weight 92.5 kg Body Mass Index 26.4 - Constitutional Present: no acute distress, well nourished, well developed - Routine HEENT Exam Head: Present: normocephalic, atraumatic Eye: Present: EOMI, PERRL ENT: Present: mucous membranes moist, oropharynx clear - Routine Neck Exam Present: supple - Routine Chest/Breast/Axilla Exam Chest wall: Absent: tenderness - Routine Respiratory Exam Present: CTA bilaterally - Routine Cardiovascular Exam Present: RRR - Routine Abdominal Exam Present: soft, normoactive bowel sounds, non distended, non tender - Routine Exam Comments: no allen - Routine Extremities Exam Present: amputation (R AKA). Absent: cyanosis, clubbing, edema - Routine Skin Exam Absent: rash Comments: wound VAC on R AKA stump - Routine Neurological Exam Present: alert, oriented X3, CN II-XII intact. 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 Will add ceftriaxone. I discussed with patient that he most likely needs 6 weeks of IV antibiotics. I discussed a possible PICC line with him. Will need help from CM to set up his outpatient IV antibiotics. Will follow up on Pathology. I will be out until Sunday, please call with questions.
[2018-04-24] MEDS: LR 1,000 ML IV SCH (10:37)
[2018-04-24] MEDS: VANCOMYCIN 1,250 MG in NS 250 ML IV SCH (14:03)
[2018-04-24] MEDS: CEFTRIAXONE 2 GM in NS 100 ML IV SCH (21:15)
[2018-04-25] MEDS: ALBUTEROL/IPRATROPIUM 2.5mg-0.5mg/3ml NEB AEROSOL SCH ×5 (01:22→21:35)
[2018-04-25] MEDS: HYDROCODONE/APAP 5mg/325mg TABLET PO PRN ×2 (01:53→16:14)
[2018-04-25] MEDS: PANTOPRAZOLE 40 MG TABLET PO SCH (05:52)
[2018-04-25] MEDS: LEVOTHYROXINE 125 MCG TABLET PO SCH (05:53)
[2018-04-25] MEDS: LISINOPRIL 20 MG TABLET PO SCH (09:08)
[2018-04-25] MEDS: VANCOMYCIN 1,250 MG in NS 250 ML IV SCH (09:11)
[2018-04-25] MEDS: SALINE FLUSH 10ml SYRINGE IV PRN (09:13)
--- NOTE | 2018-04-25 10:17 | Pharmacy Consult-Antibiotics ---
Pharmacy Consult-Vancomycin - Laboratory Information Creatinine 0.8 mg/dL (0.8-1.5) 04/25/18 08:07 Vancomycin Trough 12.18 ug/mL (15-20) L 04/25/18 08:07 VANCOMYCIN THERAPY: DAY 3 Trough a little low at 12.18 mcg/ml. Target trough = 15 - 20 mcg/ml Renal fx is stable. Will increase regimen to VANCOMYCIN 1000mg IV q 12 hours. This gives calculated peak/trough of 52/19 respectively. Will recheck trough prior to dose on 04/27 Thank you.
[2018-04-25] MEDS: CLOPIDOGREL 75 MG TABLET PO SCH (10:40)
[2018-04-25] MEDS: CEFTRIAXONE 2 GM in NS 100 ML IV SCH (20:10)
[2018-04-26] MEDS: HYDROCODONE/APAP 5mg/325mg TABLET PO PRN ×3 (04:38→21:36)
[2018-04-26] MEDS: PANTOPRAZOLE 40 MG TABLET PO SCH (06:00)
[2018-04-26] MEDS: SALINE FLUSH 10ml SYRINGE IV PRN ×2 (06:00→20:01)
[2018-04-26] MEDS: LEVOTHYROXINE 125 MCG TABLET PO SCH (06:00)
[2018-04-26] MEDS: ALBUTEROL/IPRATROPIUM 2.5mg-0.5mg/3ml NEB AEROSOL SCH ×4 (07:12→21:39)
[2018-04-26] MEDS: LISINOPRIL 20 MG TABLET PO SCH (09:52)
[2018-04-26] MEDS ORDERED: LR 1,000 ML IV SCH (12:30)
[2018-04-26] MEDS ORDERED: FentaNYL 100 MCG/2 ML INJECTION ONE (13:02)
[2018-04-26] MEDS ORDERED: MIDAZOLAM 2mg/2ml INJECTION ONE (13:02)
[2018-04-26] MEDS ORDERED: PROPOFOL 20 ML ONE (13:03)
[2018-04-26] MEDS ORDERED: EPHEDRINE 50mg/ml INJECTION ONE (13:11)
[2018-04-26] MEDS ORDERED: PHENYLEPHRINE INJ 10 MG/ML VIAL IV ONE (13:14)
[2018-04-26] MEDS ORDERED: SALINE FLUSH 10ml SYRINGE ONE (13:14)
[2018-04-26 16:44] VITALS: RESP 16
--- NOTE | 2018-04-26 17:31 | Anesthesia Preoperative Report ---
Anesthesia Preoperative Record - Date and Time Date: 04/26/18 Preoperative Diagnosis: Ulcer NPO Since Date: 04/25/18 NPO Since Time: 23:00 Allergies/Adverse Reactions: Allergies Allergy/AdvReac Type Severity Reaction Status Date / Time No Known Allergies Allergy Unknown Verified 04/23/18 11:16 - Vital Signs Vital Signs: Temperature 97.7 F 04/26/18 14:20 Pulse Rate 67 04/26/18 15:30 Respiratory Rate 16 04/26/18 15:30 Blood Pressure 134/68 04/26/18 15:30 Pulse Oximetry 96 04/26/18 15:30 Height and Weight: Height 5 ft 3 in Weight 62.5 kg Body Mass Index 26.4 - Medications Inpatient Medications: Current Medications Acetaminophen (Tylenol) 650 mg PO Q4H PRN PRN Reason: Pain Last Admin: 04/24/18 08:35 Dose: 650 mg Hydrocodone Bitart/Acetaminophen ([place] 5/325) 1 - 2 tab PO Q4H PRN PRN Reason: Pain Last Admin: 04/26/18 14:43 Dose: 2 tab Al Hydroxide/Mg Hydroxide (Maalox Plus) 30 ml PO Q3H PRN PRN Reason: Indigestion Last Admin: 04/23/18 23:48 Dose: 30 ml Albuterol Sulfate (Proventil Neb (0.083%)) 2.5 mg AEROSOL PRN PRN Albuterol/Ipratropium (Duoneb) 3 ml AEROSOL RTQID [facility] Last Admin: 04/26/18 15:27 Dose: Not Given Clopidogrel Bisulfate (Plavix) 75 mg PO DAILY [facility] Last Admin: 04/25/18 10:40 Dose: 75 mg Ceftriaxone Sodium 2 gm/ (Sodium Chloride) 100 mls @ 200 mls/hr IV Q24H [facility] Last Infusion: 04/25/18 20:51 Dose: Infused Vancomycin HCl 1,000 mg/ (Sodium Chloride) 250 mls @ 250 mls/hr IV Q12HR [facility] Last Admin: 04/26/18 09:53 Dose: 250 mls/hr Levothyroxine Sodium (Synthroid) 125 mcg PO ACB [facility] Last Admin: 04/26/18 06:00 Dose: 125 mcg Lisinopril (Prinivil) 20 mg PO DAILY [facility] Last Admin: 04/26/18 09:52 Dose: 20 mg Metoprolol Succinate (Toprol Xl) 50 mg PO PM [facility] Last Admin: 04/25/18 20:10 Dose: 50 mg Morphine Sulfate (Morphine Sulfate Inj) 2 - 10 mg IV Q1H PRN PRN Reason: Pain Ondansetron HCl (Zofran) 4 mg IVP Q6H PRN PRN Reason: Nausea &/or vomiting Last Admin: 04/23/18 17:56 Dose: 4 mg Pantoprazole Sodium (Protonix Tab) 40 mg PO ACB [facility] Last Admin: 04/26/18 06:00 Dose: 40 mg Sodium Chloride (Iv Flush) 10 ml IV PRN PRN PRN Reason: Flushing Last Admin: 04/26/18 06:00 Dose: 10 ml Sulfasalazine (Azulfidine) 1,500 mg PO BID [facility] Last Admin: 04/26/18 09:53 Dose: 1,500 mg Home Medications: Home Medications Medication Instructions Recorded Confirmed Type Metoprolol Succinate 50 mg PO PM #0 tab 02/17/17 04/23/18 History SulfaSALAzine [Azulfidine] 1,500 mg PO BID #0 tab 02/17/17 04/23/18 History Clopidogrel Bisulfate [Clopidogrel] 75 mg PO DAILY 12/24/17 04/23/18 History Levothyroxine Sodium 125 mcg PO ACB 12/24/17 04/23/18 History Lisinopril [Prinivil] 20 mg PO DAILY 12/24/17 04/23/18 History Pantoprazole Sodium [Protonix] 40 mg PO ACB 12/24/17 04/23/18 History Acetaminophen [Tylenol] 650 mg PO Q4H PRN 04/04/18 04/23/18 History Albuterol HFA Inhaler [Ventolin 2 puff INH Q4H PRN 04/04/18 04/23/18 History Hfa 90 mcg/actuation] Umeclidinium Brm/Vilanterol Tr 1 each IH DAILY 04/04/18 04/23/18 History [Anoro Ellipta 62.5-25 Mcg INH] Leflunomide 1 tab PO DAILY 04/23/18 04/23/18 History Is Patient on Beta Fanny?: Yes Beta Fanny Last Dose Date/Time: Metoprolol 04/21/18 - Medical History Respiratory: Reports: Chronic Obstructive Pulmonary Disease (COPD), Dyspnea DENIES: Sleep Apnea Cardiovascular: Reports: Hypertension Gastrointestional: Reports: Gastroesophageal Reflux Disease DENIES: Nausea or Vomiting Present Neuro/Musculoskeletal: Reports: Cerebrovascular Accident, Other (RA) Renal/Endocrine: Reports: Thyroid Disease - Surgical History Cardiac Surgeries/Treatments: Reports: Other (AAA repair; right carotid endarterectomy) Musculoskeletal Surgery/Tx: Reports: Knee Arthroscopy (right knee arthroscopy), Orthopedic Surgery (RIGHT ABOVE KNEE AMPUTEE), Other (breanna bunionectomy) Anesthesia Reactions: None Hx Family Anesthesia Reaction: No History of Motion Sickness: No - Social History Smoking Status: Former smoker Hx Chewing Tobacco Use: No Second Hand Exposure: No Substance Use Type: does not use Alcohol Intake Frequency: does not drink - Pertinent Findings Laboratory: CBC and BMP 04/26/18 12:36 BMP 04/26/18 12:36 Sodium 139 Potassium 4.0 Chloride 106 Carbon Dioxide 23 BUN 19.0 Creatinine 0.9 Glucose 91 Calcium 7.6 L EKG: Sinus Rhythm - Physical Exam Respiratory Exam: Present: lungs clear Cardiovascular Exam: Present: regular rate and rhythm - Airway Assessment Mallampati Score: II TMD: 3 Fingerbreadths Neck Extension: fair Teeth: upper dentures, lower dentures Overall Assessment: may be difficult intubation - ASA ASA Score: 3 - Plan Anesthesia: General Inhalation Gases - Discussion Discussion: Discussed risks/options/alternatives of anesthesia and questions answered. Patient consents. Nursing pain assessment noted. Attestation Statement: Prior to the delivery of any anesthetic medication, I examined the patient, developed the plan, obtained the patient's consent and discussed the risk and benefits of the procedure with the patient/guardian. - Additional Information Seen by Anesthesia: Yes
--- NOTE | 2018-04-26 17:32 | Anesthesia Postoperative Note ---
- Date and Time Date: 04/26/18 Time: 14:05 - Status Patient Participated in Evaluation: Patient Participated in Person Vital Signs: Temperature 97.7 F 04/26/18 14:20 Pulse Rate 67 04/26/18 15:30 Respiratory Rate 16 04/26/18 15:30 Blood Pressure 134/68 04/26/18 15:30 Pulse Oximetry 96 04/26/18 15:30 Respiratory Function: Airway Patent Cardiovascular Function: Regular Pulse EKG: Sinus Rhythm Mental Status: Alert and Oriented Pain Intensity: 2 Hydration: IV Infusing Nausea/Vomiting: None Complications During Recover: None Apparent - Follow-Up Instructions Instructions: Per Surgeon
[2018-04-26] MEDS: ACETAMINOPHEN 325 MG TABLET PO PRN (17:42)
[2018-04-26] MEDS: CEFTRIAXONE 2 GM in NS 100 ML IV SCH (20:01)
[2018-04-27] MEDS: HYDROCODONE/APAP 5mg/325mg TABLET PO PRN (01:54)
[2018-04-27] MEDS: LEVOTHYROXINE 125 MCG TABLET PO SCH (05:50)
[2018-04-27] MEDS: PANTOPRAZOLE 40 MG TABLET PO SCH (05:50)
--- NOTE | 2018-04-27 05:52 | Discharge Summary ---
Orthopedic Discharge Info Date of admission: 04/24/18 15:37 Primary care physician: Sammy Matias MD Attending Physician: David Patel MD Consults: 04/23/18 11:04 Consult to Anesthesiology [CONS] Routine Reason For Exam: General with Regional Block 04/23/18 16:44 Physician [Physician Consult] [CONS] Routine Consulting Provider: Jocy Ely Reason For Exam: S/P ulcer debridement. Wound vac and antibiotics. Ordering Provider has Notified Packing Machine Operator: No - Procedures Procedures: Exploration right AKA stump with wound debridement and bone biopsy with placement of wound vac 04/23/18. Closure of AKA wound following debridement 04/26/18 - Laboratory Result Diagrams: 04/26/18 12:36 Laboratory: Abnormal lab results 04/26/18 Range/Units 12:36 Calcium 7.6 L (8.4-10.2) MG/DL - Microbiology Microbiology 04/23/18 15:13 Femur, Right Gram Stain - Final 04/23/18 15:13 Femur, Right Surgical Culture - Preliminary Gram Positive Tao Orthopedic Discharge HPI - HPI Comments History of Present Illness: Mr. Meek is a 72 y/o man with RA, who is s/p R AKA several years ago. He developed a wound on the R AKA stump about 2-3 week ago. This progressed to the point that bone was exposed. He was admitted by Dr. Patel and taken to the OR for revision of his stump on 04/23/18. Orthopedic Hospital Course Hospital course: 04/27/18 05:45 After appropriate preoperative clearance and signing of operative consent, the patient was taken to the operating room and underwent exploration of the right AKA stump with wound debridement, bone biopsy and application of a wound vac on 04/23/18. He was started on Vancomycin IV and Rocephin was added the following day by ID. ID was consulted to appropriate antibiotic coverage. The cultures showed a scant growth of a gm+ tao that was not further defined and sensitivity studies were not done. Initial reports from pathology on the resected bone, showed changes consistent with but not diagnostic of osteomyelitis. The pt was taken back to the operating room on 04/26/18 and the wound vac was removed and the AKA stump site was closed. IV Vanco and Rocephin were continued after surgery but he will be discharged on PO Keflex 500mg QID for 10 days. Miguel Ángel's home anticoagulant (Plavix) was restarted after surgery. Pain was controlled. . Bowel motivation addressed with scheduled and PRN medications. Early mobilization was initiated through PT services. Discharge arrangements made by a collaborative effort between the patient and Case Management. Follow-up is scheduled on 05/01/18 in wound clinic. Discharge instructions given by orthopedic providers and nursing staff at discharge. Discharge condition was good. Care extended to > 2 midnight stays?: Yes Discharge Plan - Med Rec/Dispo Referrals/Follow Up: David Patel MD [Physician] - 05/01/18 10:45 am Prescriptions: New CephALEXin [Keflex 500 mg] 1 cap PO QID #40 cap Hydrocodone/APAP 5/325 [[place] 5/325] 1 - 2 tab PO Q4H PRN #30 tab PRN Reason: Pain Continue SulfaSALAzine [Azulfidine] 1,500 mg PO BID #0 tab Metoprolol Succinate 50 mg PO PM #0 tab Pantoprazole Sodium [Protonix] 40 mg PO ACB Lisinopril [Prinivil] 20 mg PO DAILY Clopidogrel Bisulfate [Clopidogrel] 75 mg PO DAILY Umeclidinium Brm/Vilanterol Tr [Anoro Ellipta 62.5-25 Mcg INH] 1 each IH DAILY Acetaminophen [Tylenol] 650 mg PO Q4H PRN PRN Reason: Pain Albuterol HFA Inhaler [Ventolin Hfa 90 mcg/actuation] 2 puff INH Q4H PRN PRN Reason: Prn Orders Levothyroxine Sodium 125 mcg PO ACB Leflunomide 1 tab PO DAILY Discontinued Leflunomide 20 mg PO DAILY - Disposition 01 Discharged Home, Self-Care - Dismissal Complete Discharge Instructions are:: Complete
[2018-04-27 07:22] VITALS: BP 118/69; PULSE 68; TEMP 96.3
[2018-04-27] MEDS: ALBUTEROL/IPRATROPIUM 2.5mg-0.5mg/3ml NEB AEROSOL SCH (07:30)
[2018-04-27 07:37] VITALS: O2SAT 95
--- NOTE | 2018-04-27 14:01 | Right on Track Program ---
Right on Track Program Date of Discharge: 04/27/18 Home Medications: Home Medications Medication Instructions Recorded Confirmed Metoprolol Succinate 50 mg PO PM #0 tab 02/17/17 04/23/18 SulfaSALAzine [Azulfidine] 1,500 mg PO BID #0 tab 02/17/17 04/23/18 Clopidogrel Bisulfate [Clopidogrel] 75 mg PO DAILY 12/24/17 04/23/18 Levothyroxine Sodium 125 mcg PO ACB 12/24/17 04/23/18 Lisinopril [Prinivil] 20 mg PO DAILY 12/24/17 04/23/18 Pantoprazole Sodium [Protonix] 40 mg PO ACB 12/24/17 04/23/18 Acetaminophen [Tylenol] 650 mg PO Q4H PRN 04/04/18 04/23/18 Albuterol HFA Inhaler [Ventolin 2 puff INH Q4H PRN 04/04/18 04/23/18 Hfa 90 mcg/actuation] Umeclidinium Brm/Vilanterol Tr 1 each IH DAILY 04/04/18 04/23/18 [Anoro Ellipta 62.5-25 Mcg INH] Leflunomide 1 tab PO DAILY 04/23/18 04/23/18 Previous Rx's Medication Instructions Recorded CephALEXin [Keflex 500 mg] 1 cap PO QID #40 cap 04/27/18 Hydrocodone/APAP 5/325 [[place] 1 - 2 tab PO Q4H PRN #30 tab 04/27/18 5/325] - Right on Track Program Phone call Date: 04/27/18 Right on Track Program: 24 Hour Follow-Up Discharge Summary Received: Yes Care Plan Received: Yes Follow Up: Follow Up Appointment Scheduled Referral: Primary Care Physician Comments: I left a message for Miguel Ángel, inquiring about how he's doing after his hospitalization and to see if he had any questions on his discharge instructions and medications. I left my contact information for him to return my call at his convenience. He returned my call later that day. He reported that he was having nausea earlier but that's better. He often gets nauseated if his pain gets out of control. He hasn't yet taken any Tylenol or [place] -- I discussed the dosing strategies with him to prevent Tylenol overdose, and encouraged him to take [place] with food. He also states that he hasn't had a BM yet but admits that he' s hardly been eating. He denies any abdominal pain. He denies any drainage from his stump. He denied questions on his discharge instructions, and was able to get his new Rx filled (Keflex & [place]). He has an appt scheduled with Dr. Patel. I asked if he'd like an Rx for Zofran called out but he declined. Recommendations For Follow-up: 1. F/U with Dr. Patel - 05/01/18 10:45 am 2. Home visit on 05/07/18 3. Call myself or Jean Serrato if Rx Zofran is needed [id number]-[id number] visit Date: 05/07/18 Right on Track Program: 7-14 Day [id number] Discharge Summary Received: Yes Care Plan Received: Yes Follow Up: Follow Up Appointment Scheduled Education: Diagnosis Education Reviewed, Education Provided To Caregiver Referral: Primary Care Physician, Home Health Comments: I visited Miguel Ángel at his house in [place]. He lives with his brother, Charito, who is his caregiver. His pain is kept under control with Tylenol 1g QID. He denies fever/chills/sweats. He denies SOA, cough/congestion, or chest pain. He denies abdominal pain, n/v/d/c, and states that he's been eating and drinking well. His brother does all the cooking. He is taking his medications as Rx and denies questions on these -- again his brother and home health have been helping him with his meds. He is still having some difficulty with transfers, and his brother has to help him. However, Miguel Ángel prefers to bathe on his own. He states that his dressings are changed Q3d, and he expects them to be changed today. He denies excess drainage or redness. He denies depression or anxiety. He states that he had to reschedule his appointment with Dr. Patel from tomorrow to a week from tomorrow. His brother denied any caregiver stress/strain. Exam Gen: Flat affect, answers in 1-word responses, cooperative HEENT: Sclera anicteric, no thrush, MMM CV: RRR with CHIN Lungs: Scattered expiratory wheezing, good air movement, no distress Abd: normoactive bowel sounds, nondistended, nontender Ext: R stump - dressing intact with mild dried drainage visible. No surrounding erythema/swelling. LLL is edematous with Kerlix dressing in place, serous drainage noted on gauze. Recommendations For Follow-up: 1. I called his home health RN Lexus - she will be seeing him this afternoon to check on him and replace his dressings. She is hopeful to start lymphedema wrap for his LLE. I asked her to update Dr. Patel on the appearance of the wounds, especially since Miguel Ángel won't be at the appt tomorrow. She also is reinforcing offloading his coccyx to promote skin integrity and to use his inhalers d/t hx of COPD and intermittent wheezing. 2. F/U with Dr. Matias/Dr. Patel as planned. 3. Continue HH and therapy.
--- NOTE | 2018-04-30 09:10 | Operative Note ---
DATE OF SURGERY: 04/26/2018 PREOPERATIVE DIAGNOSIS: Right [id number] amputation stump ulceration. POSTOPERATIVE DIAGNOSIS: Right [id number] amputation stump ulceration. PROCEDURE: Irrigation debridement of bone and closure of right [id number] amputation stump. SURGEON: David Patel MD ANESTHESIA: General. COMPLICATIONS: None. EBL & FLUIDS: Please see anesthetic records. DESCRIPTION OF PROCEDURE Mr. Meek and his right stump were identified and marked in the preoperative holding area. He was brought back to an operative suite and placed supine on the operating table. He was placed under general anesthesia. The right AKA stump was prepped and draped in my normal sterile fashion. Time out was performed. The overall appearance of the wound appeared healthy. No gross drainage. No contamination. The exposed bone was also free of any obvious necrosis. The skin edges were freshened up sharply with a 10 blade. There was not enough skin to close the skin without any undue tension over the bone so I did remove a half centimeter of bone with a saw. Again cut edges were smoothed down with the saw until there were no sharp edges. The wound was thoroughly irrigated with normal saline. I then closed the deep muscle fascia over the distal femur using #1 Vicryl in interrupted fashion. After this I was able to close the skin edges without any tension using 3-0 nylon in simple interrupted fashion. A sterile dressing was placed. The drapes were removed. He was allowed to waken from general anesthesia and taken to the recovery room under the care of Anesthesia. He tolerated the procedure well without complications. MAYTE
== END 2018-04-27 09:15 | disposition home health service (06) | DRG 475 ==
LOC: SUR 10:43 → NMC.PERIOP 10:46 → SRG 16:35
PROVIDERS: ADMIT Orthopaedic Surgery; ATTEND Orthopaedic Surgery